=== PATIENT | female | born 1950 | race Caucasian/White ===

== ENCOUNTER → 2016-08-20 | Outpatient (CLI) | payer MEDICARE, BC ==
--- NOTE | 2016-08-20 08:23 | PCM.PRNOTE ---
- Free Text/Narrative Note: Lexiscan Indication cardiomyopathy Patient was supervised today during infusion portion of the stress test. The patient received Regadenoson 0.4 mg IV and nuclear agent using standard protocol. Sestamibi Tm99 25 Mci was gievn afterwards Baseline blood pressure is140/73 with a heart rate 66 EKG atrial fibrillation without ST abnormalities Vital signs at injection: Peak blood pressure 137/61 with a heart rate of 100 Vital signs at 4 minutes post injection: Peak blood pressure 139/62with a heart rate of99 EKG SR CLBBB, widening QRS complex during stress phase Patient complains of SOB spontaneously resolved Adverse effects from Yee scan none Test done due to end of protocol Impression 1. electrocardiographically nondiagnostic for ischemia due to chemical protocol 2. nuclear imaging pending 3. will contact EPS for the ECG change while on flecanide
--- NOTE | 2016-08-20 14:49 | NM ---
EXAMINATION: Nuclear medicine myocardial perfusion study HISTORY: Atrial fibrillation. PROCEDURE: Following intravenous administration of 0.4 mg of Lexiscan and 25.6 mCi of technetium 99m sestamib i, stress SPECT images including gating imaging was performed. FINDINGS: Stress myocardial SPECT images demonstrates mildly decreased perfusion at the apex involving a small area. There is also a moderate area of mildly decreased perfusion along the anteroseptal wall. Review of gated images demonstrates normal wall motion, contractility and wall thickening. The left ventricular ejection fraction is 49 %. The left ventricular chamber size is normal. IMPRESSION: 1. Mildly decreased perfusion at the apex and along the anteroseptal wall. Correlate with rest imag ing. 2. Normal ventricular chamber size and function with borderline ejection fraction of 49 %.
--- NOTE | 2016-08-30 11:48 | NM ---
EXAM DATE: 08/20/16 PATIENT'S AGE: 66 ADDENDUM: Additional images were obtained at rest following the administration of 25.7 mCi of technetium 99M labeled sestamibi. FINDINGS/IMPRESSION: Overall the perfusion pattern at rest appears heterogeneous and compared to the stress imaging. There is no definite evidence of reversible perfusion. The decreased uptake along the anteroseptal wall appears more prominent on the rest imaging. No evidence of myocardial ischemia. The ejection fraction at rest is 51 %. The TID is 1.1. EXAMINATION: Nuclear medicine myocardial perfusion study HISTORY: Atrial fibrillation. PROCEDURE: Following intravenous administration of 0.4 mg of Lexiscan and 25.6 mCi of technetium 99m sestamibi, stress SPECT images including gating imaging was performed. FINDINGS: Stress myocardial SPECT images demonstrates mildly decreased perfusion at the apex involving a small area. There is also a moderate area of mildly decreased perfusion along the anteroseptal wall. Review of gated images demonstrates normal wall motion, contractility and wall thickening. The left ventricular ejection fraction is 49 %. The left ventricular chamber size is normal. IMPRESSION: 1. Mildly decreased perfusion at the apex and along the anteroseptal wall. Correlate with rest imaging. 2. Normal ventricular chamber size and function with borderline ejection fraction of 49 %. MTDD
== END ==
LOC: MW.NM 07:28
PROVIDERS: ATTEND Nurse Practitioner Family
DX: I48.0 Paroxysmal atrial fibrillation (principal); I42.9 Cardiomyopathy, unspecified
CPT/HCPCS: 78452; 93017; A9500; J2785; 78451; 78451-26

== ENCOUNTER → 2016-08-22 | Outpatient (CLI) | payer MEDICARE, BC ==
--- NOTE | 2016-08-27 15:15 | NM ---
EXAM DATE: 08/22/16 PATIENT'S AGE: 66 ADDENDUM: Additional images were obtained at rest following the administration of 25.7 mCi of technetium 99M labeled sestamibi. FINDINGS/IMPRESSION: Overall the perfusion pattern at rest appears heterogeneous and compared to the stress imaging. There is no definite evidence of reversible perfusion. The decreased uptake along the anteroseptal wall appears more prominent on the rest imaging. No evidence of myocardial ischemia. The ejection fraction at rest is 51 %. The TID is 1.1. EXAMINATION: Nuclear medicine myocardial perfusion study HISTORY: Atrial fibrillation. PROCEDURE: Following intravenous administration of 0.4 mg of Lexiscan and 25.6 mCi of technetium 99m sestamibi, stress SPECT images including gating imaging was performed. FINDINGS: Stress myocardial SPECT images demonstrates mildly decreased perfusion at the apex involving a small area. There is also a moderate area of mildly decreased perfusion along the anteroseptal wall. Review of gated images demonstrates normal wall motion, contractility and wall thickening. The left ventricular ejection fraction is 49 %. The left ventricular chamber size is normal. IMPRESSION: 1. Mildly decreased perfusion at the apex and along the anteroseptal wall. Correlate with rest imaging. 2. Normal ventricular chamber size and function with borderline ejection fraction of 49 %. MTDD
== END ==
LOC: MW.NM 08:52
PROVIDERS: ATTEND Nurse Practitioner Family
DX: I48.0 Paroxysmal atrial fibrillation (principal)
CPT/HCPCS: 78451; A9500

== ENCOUNTER 2016-11-09 12:44 | Emergency (ER) | payer MEDICARE, BC ==
[2016-11-09] MEDS ORDERED: Sodium Chloride 0.9% 10 ML Syringe FLUSH PRN (12:49)
[2016-11-09] MEDS ORDERED: Sodium Chloride 0.9% 2.5 ML Syringe FLUSH PRN (12:49)
[2016-11-09] MEDS ORDERED: Sodium Chloride 0.9% 1,000 ML IV ONE (12:49)
--- NOTE | 2016-11-09 12:52 | EDM.PDOC ---
ED HPI GENERAL MEDICAL PROBLEM - General Chief Complaint: Abdominal Pain Stated Complaint: STOMACH PAIN Time Seen by Provider: 11/09/16 12:48 - History of Present Illness INITIAL COMMENTS - FREE TEXT/NARRATIVE: HISTORY AND PHYSICAL: History of present illness: Patient 66-year-old white female history of atrial fibrillation and presents with concern of abdominal pain 1 day who noted blood in her stool this a.m. she denies fever chills nausea vomiting or other complaints no chest pain no shortness of breath Review of systems: As per history of present illness and below otherwise all systems reviewed and negative. Past medical history: As per history of present illness and as reviewed below otherwise noncontributory. Surgical history: As per history of present illness and as reviewed below otherwise noncontributory. Social history: No reported history of drug or alcohol abuse. Family history: As per history of present illness and as reviewed below otherwise noncontributory. Physical exam: HEENT: Atraumatic, normocephalic, pupils reactive, negative for conjunctival pallor or scleral icterus, mucous membranes moist, throat clear, neck supple, nontender, trachea midline. Lungs: Clear to auscultation, breath sounds equal bilaterally, chest nontender. Heart: S1S2, irregular, negative for clicks, rubs, or JVD. Abdomen: Soft, nondistended, mild tenderness across her lower abdomen greatest in the left lower quadrant no rebound no guarding. Negative for masses or hepatosplenomegaly. Negative for costovertebral tenderness. Pelvis: Stable nontender. Genitourinary: Deferred. Rectal: Deferred. Extremities: Atraumatic, negative for cords or calf pain. Neurovascular unremarkable. Neuro: Awake, alert, oriented. Cranial nerves II through XII unremarkable. Cerebellum unremarkable. Motor and sensory unremarkable throughout. Exam nonfocal. Diagnostics: CBC CMP PT/INR troponin chest x-ray EKG CT abdomen and pelvis with IV contrast Therapeutics: Normal saline 1 L bolus Impression: #1 abdominal pain #2 history of atrial fibrillation #3 UTI Definitive disposition and diagnosis as appropriate pending reevaluation and review of above. - Related Data Allergies Allergy/AdvReac Type Severity Reaction Status Date / Time nitrofurantoin Allergy Hives Verified 11/09/16 12:57 Home Meds: Home Meds Bifidobacterium Infantis [Align] 10.5 mg PO DAILY 11/09/16 [History] Flecainide Acetate 100 mg PO DAILY 11/09/16 [History] Verapamil [Calan SR] 120 mg PO DAILY 11/09/16 [History] Warfarin [Coumadin] 2.5 mg PO ASDIRECTED 11/09/16 [History] Past Medical History HEENT History: Reports: None Cardiovascular History: Reports: Afib Respiratory History: Reports: None Gastrointestinal History: Reports: None Genitourinary History: Reports: UTI, Recurrent CONSULTING PROJECT DIRECTOR History: Reports: 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 History: Reports: None Neurological History: Reports: None Psychiatric History: Reports: None Hematologic History: Reports: None Oncologic (Cancer) History: Reports: Thyroid Dermatologic History: Reports: None - Infectious Disease History Infectious Disease History: Reports: Chicken Pox, Measles, Mumps - Past Surgical History Female Surgical History: Reports: Hysterectomy, Other (See Below) Social & Family History - Family History Family Medical History: Noncontributory - Tobacco Use Smoking Status *Q: Never Smoker Second Hand Smoke Exposure: No - Alcohol Use Days Per Week of Alcohol Use: 0 - Recreational Drug Use Recreational Drug Use: No ED ROS GENERAL - Review of Systems Review Of Systems: ROS reveals no pertinent complaints other than HPI. ED EXAM, GENERAL - Physical Exam Exam: See Below (See dictation) Course - Vital Signs Last Recorded V/S: Last Vital Signs Temp 36.1 C 11/09/16 14:24 Pulse 61 11/09/16 14:24 Resp 18 11/09/16 14:24 BP 146/57 H 11/09/16 14:24 Pulse Ox 99 11/09/16 14:24 - Orders/Labs/Meds Orders: Active Orders 24 hr Category Date Time Status EKG Documentation Completion [RC] STAT Care 11/09/16 12:49 Active Pulse Oximetry [RC] ASDIRECTED Care 11/09/16 12:49 Active Abdomen Pelvis w Cont [CT] Stat Exams 11/09/16 12:49 Taken Sodium Chloride 0.9% [Saline Flush] Med 11/09/16 12:49 Active 10 ml FLUSH ASDIRECTED PRN Sodium Chloride 0.9% [Saline Flush] Med 11/09/16 12:49 Active 2.5 ml FLUSH ASDIRECTED PRN Saline Lock Insert [OM.PC] Stat Oth 11/09/16 12:49 Ordered Medication Orders Sodium Chloride (Saline Flush) 10 ml FLUSH ASDIRECTED PRN PRN Reason: Keep Vein Open Sodium Chloride (Saline Flush) 2.5 ml FLUSH ASDIRECTED PRN PRN Reason: Keep Vein Open Labs: Laboratory Tests 11/09/16 11/09/16 11/09/16 Range/Units 13:00 13:00 13:00 WBC 6.51 (4.0-11.0) K/uL RBC 4.36 (4.30-5.90) M/uL Hgb 13.4 (12.0-16.0) g/dL Hct 38.8 (36.0-46.0) % MCV 89.0 (80.0-98.0) fL MCH 30.7 (27.0-32.0) pg MCHC 34.5 (31.0-37.0) g/dL RDW Std Deviation 40.2 (28.0-62.0) fl RDW Coeff of Caroline 13 (11.0-15.0) % Plt Count 225 (150-400) K/uL MPV 9.30 (7.40-12.00) fL Neut % (Auto) 75.8 (48.0-80.0) % Lymph % (Auto) 17.1 (16.0-40.0) % [place] % (Auto) 6.6 (0.0-15.0) % Eos % (Auto) 0.2 (0.0-7.0) % Baso % (Auto) 0.3 (0.0-1.5) % Neut # (Auto) 4.9 (1.4-5.7) K/uL Lymph # (Auto) 1.1 (0.6-2.4) K/uL [place] # (Auto) 0.4 (0.0-0.8) K/uL Eos # (Auto) 0.0 (0.0-0.7) K/uL Baso # (Auto) 0.0 (0.0-0.1) K/uL Nucleated RBC % 0.0 /100WBC Nucleated RBCs # 0 K/uL INR 1.99 H (0.86-1.11) Sodium 141 (136-146) mmol/L Potassium 3.4 L (3.5-5.1) mmol/L Chloride 109 (98-110) mmol/L Carbon Dioxide 26 (21-31) mmol/L BUN 19 (6.0-23.0) mg/dL Creatinine 0.8 (0.6-1.5) mg/dL Est Cr Clr Drug Dosing 65.28 mL/min Estimated GFR (MDRD) > 60.0 ml/min Glucose 99 (60-110) mg/dL Calcium 9.3 (8.8-10.8) mg/dL Total Bilirubin 1.4 (0.1-1.5) mg/dL AST 26 (5-40) IU/L ALT 22 (8-54) IU/L Alkaline Phosphatase 89 (40-150) Troponin I (0.0-0.29) NG/ML Total Protein 7.2 (6.0-8.0) g/dL Albumin 4.2 (3.4-4.8) g/dL Globulin 3.0 (2.0-3.5) g/dL Albumin/Globulin Ratio 1.4 (1.3-2.8) Amylase 53 (10-90) U/L Lipase 12 (7-80) U/L Urine Color Urine Appearance Urine pH (5.0-8.0) Ur Specific [place] (1.001-1.035) Urine Protein (NEGATIVE) mg/dL Urine Glucose (UA) (NEGATIVE) mg/dL Urine Ketones (NEGATIVE) mg/dL Urine Occult Blood (NEGATIVE) Urine Nitrite (NEGATIVE) Urine Bilirubin (NEGATIVE) Urine Urobilinogen (<2.0) EU/dL Ur Leukocyte Esterase (NEGATIVE) Urine RBC (0-2/HPF) Urine WBC (0-5/HPF) Ur Epithelial Cells (NONE-FEW) Urine Bacteria (NEGATIVE) 11/09/16 11/09/16 Range/Units 13:00 13:15 WBC (4.0-11.0) K/uL RBC (4.30-5.90) M/uL Hgb (12.0-16.0) g/dL Hct (36.0-46.0) % MCV (80.0-98.0) fL MCH (27.0-32.0) pg MCHC (31.0-37.0) g/dL RDW Std Deviation (28.0-62.0) fl RDW Coeff of Caroline (11.0-15.0) % Plt Count (150-400) K/uL MPV (7.40-12.00) fL Neut % (Auto) (48.0-80.0) % Lymph % (Auto) (16.0-40.0) % [place] % (Auto) (0.0-15.0) % Eos % (Auto) (0.0-7.0) % Baso % (Auto) (0.0-1.5) % Neut # (Auto) (1.4-5.7) K/uL Lymph # (Auto) (0.6-2.4) K/uL [place] # (Auto) (0.0-0.8) K/uL Eos # (Auto) (0.0-0.7) K/uL Baso # (Auto) (0.0-0.1) K/uL Nucleated RBC % /100WBC Nucleated RBCs # K/uL INR (0.86-1.11) Sodium (136-146) mmol/L Potassium (3.5-5.1) mmol/L Chloride (98-110) mmol/L Carbon Dioxide (21-31) mmol/L BUN (6.0-23.0) mg/dL Creatinine (0.6-1.5) mg/dL Est Cr Clr Drug Dosing mL/min Estimated GFR (MDRD) ml/min Glucose (60-110) mg/dL Calcium (8.8-10.8) mg/dL Total Bilirubin (0.1-1.5) mg/dL AST (5-40) IU/L ALT (8-54) IU/L Alkaline Phosphatase (40-150) Troponin I < 0.10 (0.0-0.29) NG/ML Total Protein (6.0-8.0) g/dL Albumin (3.4-4.8) g/dL Globulin (2.0-3.5) g/dL Albumin/Globulin Ratio (1.3-2.8) Amylase (10-90) U/L Lipase (7-80) U/L Urine Color YELLOW Urine Appearance CLEAR Urine pH 6.5 (5.0-8.0) Ur Specific [place] <= 1.005 (1.001-1.035) Urine Protein NEGATIVE (NEGATIVE) mg/dL Urine Glucose (UA) NEGATIVE (NEGATIVE) mg/dL Urine Ketones NEGATIVE (NEGATIVE) mg/dL Urine Occult Blood MODERATE (NEGATIVE) Urine Nitrite POSITIVE H (NEGATIVE) Urine Bilirubin NEGATIVE (NEGATIVE) Urine Urobilinogen 0.2 (<2.0) EU/dL Ur Leukocyte Esterase NEGATIVE (NEGATIVE) Urine RBC 0-1 (0-2/HPF) Urine WBC 3-5 (0-5/HPF) Ur Epithelial Cells RARE (NONE-FEW) Urine Bacteria 1+ H (NEGATIVE) Meds: Medications Generic Name Dose Route Start Last Admin Trade Name Freq PRN Reason Stop Dose Admin Sodium Chloride 10 ml 11/09/16 12:49 Saline Flush FLUSH ASDIRECTED PRN Keep Vein Open Sodium Chloride 2.5 ml 11/09/16 12:49 Saline Flush FLUSH ASDIRECTED PRN Keep Vein Open Discontinued Medications Generic Name Dose Route Start Last Admin Trade Name Freq PRN Reason Stop Dose Admin Sodium Chloride 1,000 mls @ 999 mls/hr 11/09/16 12:49 11/09/16 13:18 Normal Saline IV 11/09/16 13:49 999 mls/hr STAT ONE Administration Iopamidol 100 ml 11/09/16 14:39 11/09/16 14:40 Isovue Multipack-370 (76%) IVPUSH 11/09/16 14:40 100 ml ONETIME STA Administration Departure - Departure Time of Disposition: 15:39 Disposition: Home, Self-Care 01 Condition: Good Clinical Impression: Abdominal pain, History of rectal bleeding, UTI (urinary tract infection) - Discharge Information Forms: ED Department Discharge Additional Instructions: The following information is given to patients seen in the emergency department who are being discharged to home. This information is to outline your options for follow-up care. We provide all patients seen in our emergency department with a follow-up referral. The need for follow-up, as well as the timing and circumstances, are variable depending upon the specifics of your emergency department visit. If you don't have a primary care physician on staff, we will provide you with a referral. We always advise you to contact your personal physician following an emergency department visit to inform them of the circumstance of the visit and for follow-up with them and/or the need for any referrals to a consulting specialist. The emergency department will also refer you to a specialist when appropriate. This referral assures that you have the opportunity for followup care with a specialist. All of these measure are taken in an effort to provide you with optimal care, which includes your followup. Under all circumstances we always encourage you to contact your private physician who remains a resource for coordinating your care. When calling for followup care, please make the office aware that this follow-up is from your recent emergency room visit. If for any reason you are refused follow-up, please contact the emergency department at and asked to speak to the emergency department charge nurse. Cipro as prescribed follow-up primary medical doctor 1-2 days return as needed as discussed - My Orders Last 24 Hours: My Active Orders 11/09/16 12:49 EKG Documentation Completion [RC] STAT Pulse Oximetry [RC] ASDIRECTED Abdomen Pelvis w Cont [CT] Stat Sodium Chloride 0.9% [Saline Flush] 10 ml FLUSH ASDIRECTED PRN Sodium Chloride 0.9% [Saline Flush] 2.5 ml FLUSH ASDIRECTED PRN Saline Lock Insert [OM.PC] Stat - Assessment/Plan Last 24 Hours: My Active Orders 11/09/16 12:49 EKG Documentation Completion [RC] STAT Pulse Oximetry [RC] ASDIRECTED Abdomen Pelvis w Cont [CT] Stat Sodium Chloride 0.9% [Saline Flush] 10 ml FLUSH ASDIRECTED PRN Sodium Chloride 0.9% [Saline Flush] 2.5 ml FLUSH ASDIRECTED PRN Saline Lock Insert [OM.PC] Stat
[2016-11-09 13:40] LABS: CHLORIDE,CL 109 mmol/L (98-110); SODIUM,NA 141 mmol/L (136-146)
[2016-11-09] MEDS ORDERED: Iopamidol 755 MG/ML 500 ML Multipack Bottle IVPUSH STA (14:39)
[2016-11-09 15:40] VITALS: BP 137/60
--- NOTE | 2016-11-11 13:00 | CT ---
EXAM DATE: 11/09/16 PATIENT'S AGE: 66 Patient: ERWIN GARCIA Facility: [place], [place] Site . Site : [id number] Study: CT Abdomen/Pelvis [id number]/[id number] 2:57:30 PM Ordering Physician: Linda Anna Final Report: INDICATION: Lower abdominal pain. Bright red stool. TECHNIQUE: Volumetric helical scanning of the abdomen and pelvis was performed with 100 cc of Isovue 370 contrast material IV. Coronal and sagittal reconstructions were obtained. COMPARISON: None. FINDINGS: There is no evidence of bowel obstruction or inflammation. No free fluid or free air is demonstrated. The liver is normal in size, shape and attenuation. No bile duct dilation is evident. The spleen, adrenal glands and pancreas are within normal limits. The kidneys are unremarkable except several tiny parenchymal cysts. No lymphadenopathy is evident. The uterus has been removed. A normal left ovary is noted. A right ovary is not visualized. An air bubble is present in the bladder , presumably due to instrumentation. The lung bases are clear. The heart is normal in size. IMPRESSION: 1. Etiology of lower abdominal pain and bloody stool not evident. 2. Post hysterectomy. 3. Tiny renal parenchymal cysts. 4. Air bubble in the bladder, presumably due to instrumentation. Please note that all CT scans at this facility use dose modulation, iterative reconstruction, and/or weight-based dosing when appropriate to reduce radiation dose to as low as reasonably achievable. Dictated by Ryan Chowdhury MD @ Nov 09 2016 3:24PM (Electronic Signature) Report Signed by Proxy. COREY
== END 2016-11-09 15:52 | disposition home or self-care (01) ==
LOC: MW.ED 12:44
DX: N39.0 Urinary tract infection, site not specified (principal); I48.91 Unspecified atrial fibrillation; Z88.8 Allergy status to other drugs, medicaments and biological substances; Z79.01 Long term (current) use of anticoagulants; Z79.899 Other long term (current) drug therapy; Z90.710 Acquired absence of both cervix and uterus
CPT/HCPCS: 36415; 74177; 80053; 81001; 82150; 83690; 84484; 85025; 85610; 96360; 99284; J7040; Q9967; 93005; 99282

== ENCOUNTER 2017-03-30 18:21 | Emergency (ER) | payer MEDICARE, BC ==
--- NOTE | 2017-03-30 18:47 | EDM.PDOC ---
ED HPI GENERAL MEDICAL PROBLEM - General Chief Complaint: Cardiovascular Problem Stated Complaint: NOT FEELING WELL Time Seen by Provider: 03/30/17 18:42 - History of Present Illness INITIAL COMMENTS - FREE TEXT/NARRATIVE: HISTORY AND PHYSICAL: History of present illness: Patient 66-year-old female history of intermittent atrial fibrillation presents a concern of palpitations and irregular heartbeat that is resolved upon arrival she states she's had similar episodes in the past with the same feeling related to intermittent atrial fibrillation. She denies chest pain nausea vomiting or other concerns at this point Review of systems: As per history of present illness and below otherwise all systems reviewed and negative. Past medical history: As per history of present illness and as reviewed below otherwise noncontributory. Surgical history: As per history of present illness and as reviewed below otherwise noncontributory. Social history: No reported history of drug or alcohol abuse. Family history: As per history of present illness and as reviewed below otherwise noncontributory. Physical exam: HEENT: Atraumatic, normocephalic, pupils reactive, negative for conjunctival pallor or scleral icterus, mucous membranes moist, throat clear, neck supple, nontender, trachea midline. Lungs: Clear to auscultation, breath sounds equal bilaterally, chest nontender. Heart: S1S2, regular, negative for clicks, rubs, or JVD. Abdomen: Soft, nondistended, nontender. Negative for masses or hepatosplenomegaly. Negative for costovertebral tenderness. Pelvis: Stable nontender. Genitourinary: Deferred. Rectal: Deferred. Extremities: Atraumatic, negative for cords or calf pain. Neurovascular unremarkable. Neuro: Awake, alert, oriented. Cranial nerves II through XII unremarkable. Cerebellum unremarkable. Motor and sensory unremarkable throughout. Exam nonfocal. Diagnostics: BC CMP PT/INR troponin chest x-ray EKG Therapeutics: IV O2 monitor Impression: #1 palpitations #2 history of intermittent atrial fibrillation Definitive disposition and diagnosis as appropriate pending reevaluation and review of above. - Related Data Allergies Allergy/AdvReac Type Severity Reaction Status Date / Time nitrofurantoin Allergy Hives Verified 03/30/17 18:39 Home Meds: Home Meds Bifidobacterium Infantis [Align] 10.5 mg PO DAILY 11/09/16 [History] Flecainide Acetate 100 mg PO BID 11/09/16 [History] Verapamil [Calan SR] 120 mg PO DAILY 11/09/16 [History] Warfarin [Coumadin] 7 mg PO ASDIRECTED 11/09/16 [History] Cephalexin [Keflex] 250 mg PO DAILY 03/30/17 [History] Past Medical History HEENT History: Reports: None Cardiovascular History: Reports: Afib Respiratory History: Reports: None Gastrointestinal History: Reports: None Genitourinary History: Reports: UTI, Recurrent 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: 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 History: Reports: None Neurological History: Reports: None Psychiatric History: Reports: None Hematologic History: Reports: None Oncologic (Cancer) History: Reports: Thyroid Dermatologic History: Reports: None - Infectious Disease History Infectious Disease History: Reports: Chicken Pox, Measles, Mumps - Past Surgical History Female Surgical History: Reports: Hysterectomy, Other (See Below) Social & Family History - Family History Family Medical History: Noncontributory - Tobacco Use Smoking Status *Q: Never Smoker Second Hand Smoke Exposure: No - Alcohol Use Days Per Week of Alcohol Use: 0 - Recreational Drug Use Recreational Drug Use: No ED ROS GENERAL - Review of Systems Review Of Systems: ROS reveals no pertinent complaints other than HPI. ED EXAM, GENERAL - Physical Exam Exam: See Below (See dictation) Course - Vital Signs Text/Narrative:: I discussed with patient all results as well as with patient was offered admission for observation I discussed subtle EKG changes with patient patient remains asymptomatic is eager for discharge and agrees to follow-up with private medical doctor and cardiology Last Recorded V/S: Last Vital Signs Temp 36.9 C 03/30/17 18:21 Pulse 75 03/30/17 19:38 Resp 14 03/30/17 19:38 BP 144/70 H 03/30/17 19:38 Pulse Ox 97 03/30/17 19:38 - Orders/Labs/Meds Orders: Active Orders 24 hr Category Date Time Status Chest 1V Frontal [CR] Stat Exams 03/30/17 18:45 Taken Labs: Laboratory Tests 03/30/17 03/30/17 03/30/17 Range/Units 19:02 19:02 19:02 WBC 6.49 (4.0-11.0) K/uL RBC 4.17 L (4.30-5.90) M/uL Hgb 13.1 (12.0-16.0) g/dL Hct 38.0 (36.0-46.0) % MCV 91.1 (80.0-98.0) fL MCH 31.4 (27.0-32.0) pg MCHC 34.5 (31.0-37.0) g/dL RDW Std Deviation 42.5 (28.0-62.0) fl RDW Coeff of Caroline 13 (11.0-15.0) % Plt Count 253 (150-400) K/uL MPV 9.20 (7.40-12.00) fL Neut % (Auto) 70.2 (48.0-80.0) % Lymph % (Auto) 21.9 (16.0-40.0) % [place] % (Auto) 7.1 (0.0-15.0) % Eos % (Auto) 0.5 (0.0-7.0) % Baso % (Auto) 0.3 (0.0-1.5) % Neut # (Auto) 4.6 (1.4-5.7) K/uL Lymph # (Auto) 1.4 (0.6-2.4) K/uL [place] # (Auto) 0.5 (0.0-0.8) K/uL Eos # (Auto) 0.0 (0.0-0.7) K/uL Baso # (Auto) 0.0 (0.0-0.1) K/uL Nucleated RBC % 0.0 /100WBC Nucleated RBCs # 0 K/uL INR 2.79 H (0.86-1.11) D-Dimer, Quantitative (0.0-0.52) mg/LFEU Sodium 140 (136-146) mmol/L Potassium 3.8 (3.5-5.1) mmol/L Chloride 108 (98-110) mmol/L Carbon Dioxide 23 (21-31) mmol/L BUN 20 (6.0-23.0) mg/dL Creatinine 0.8 (0.6-1.5) mg/dL Est Cr Clr Drug Dosing 65.45 mL/min Estimated GFR (MDRD) > 60.0 ml/min Glucose 97 (60-110) mg/dL Calcium 9.1 (8.8-10.8) mg/dL Total Bilirubin 0.9 (0.1-1.5) mg/dL AST 24 (5-40) IU/L ALT 23 (8-54) IU/L Alkaline Phosphatase 80 (40-150) Creatine Kinase 172 (9-236) IU/L Troponin I 0.16 (0.0-0.29) NG/ML Total Protein 7.0 (6.0-8.0) g/dL Albumin 4.1 (3.4-4.8) g/dL Globulin 2.9 (2.0-3.5) g/dL Albumin/Globulin Ratio 1.4 (1.3-2.8) 03/30/17 Range/Units 19:02 WBC (4.0-11.0) K/uL RBC (4.30-5.90) M/uL Hgb (12.0-16.0) g/dL Hct (36.0-46.0) % MCV (80.0-98.0) fL MCH (27.0-32.0) pg MCHC (31.0-37.0) g/dL RDW Std Deviation (28.0-62.0) fl RDW Coeff of Caroline (11.0-15.0) % Plt Count (150-400) K/uL MPV (7.40-12.00) fL Neut % (Auto) (48.0-80.0) % Lymph % (Auto) (16.0-40.0) % [place] % (Auto) (0.0-15.0) % Eos % (Auto) (0.0-7.0) % Baso % (Auto) (0.0-1.5) % Neut # (Auto) (1.4-5.7) K/uL Lymph # (Auto) (0.6-2.4) K/uL [place] # (Auto) (0.0-0.8) K/uL Eos # (Auto) (0.0-0.7) K/uL Baso # (Auto) (0.0-0.1) K/uL Nucleated RBC % /100WBC Nucleated RBCs # K/uL INR (0.86-1.11) D-Dimer, Quantitative < 0.19 (0.0-0.52) mg/LFEU Sodium (136-146) mmol/L Potassium (3.5-5.1) mmol/L Chloride (98-110) mmol/L Carbon Dioxide (21-31) mmol/L BUN (6.0-23.0) mg/dL Creatinine (0.6-1.5) mg/dL Est Cr Clr Drug Dosing mL/min Estimated GFR (MDRD) ml/min Glucose (60-110) mg/dL Calcium (8.8-10.8) mg/dL Total Bilirubin (0.1-1.5) mg/dL AST (5-40) IU/L ALT (8-54) IU/L Alkaline Phosphatase (40-150) Creatine Kinase (9-236) IU/L Troponin I (0.0-0.29) NG/ML Total Protein (6.0-8.0) g/dL Albumin (3.4-4.8) g/dL Globulin (2.0-3.5) g/dL Albumin/Globulin Ratio (1.3-2.8) Departure - Departure Time of Disposition: 20:11 Disposition: Home, Self-Care 01 Condition: Good Clinical Impression: Palpitations, History of atrial fibrillation Referrals: Eva Leal MD [Primary Care Provider] - Forms: ED Department Discharge Additional Instructions: The following information is given to patients seen in the emergency department who are being discharged to home. This information is to outline your options for follow-up care. We provide all patients seen in our emergency department with a follow-up referral. The need for follow-up, as well as the timing and circumstances, are variable depending upon the specifics of your emergency department visit. If you don't have a primary care physician on staff, we will provide you with a referral. We always advise you to contact your personal physician following an emergency department visit to inform them of the circumstance of the visit and for follow-up with them and/or the need for any referrals to a consulting specialist. The emergency department will also refer you to a specialist when appropriate. This referral assures that you have the opportunity for followup care with a specialist. All of these measure are taken in an effort to provide you with optimal care, which includes your followup. Under all circumstances we always encourage you to contact your private physician who remains a resource for coordinating your care. When calling for followup care, please make the office aware that this follow-up is from your recent emergency room visit. If for any reason you are refused follow-up, please contact the [facility] emergency department at and asked to speak to the emergency department charge nurse. Continue current medications follow-up cardiology and private medical doctor 1- 2 days return as needed as discussed - My Orders Last 24 Hours: My Active Orders 03/30/17 18:45 Chest 1V Frontal [CR] Stat - Assessment/Plan Last 24 Hours: My Active Orders 03/30/17 18:45 Chest 1V Frontal [CR] Stat
[2017-03-30 19:30] LABS: CHLORIDE,CL 108 mmol/L (98-110); SODIUM,NA 140 mmol/L (136-146)
[2017-03-30 20:21] VITALS: BP 148/69
--- NOTE | 2017-03-31 17:14 | CR ---
EXAM DATE: 03/30/17 PATIENT'S AGE: 66 Patient: ERWIN GARCIA Facility: [place], [place] Site . Site : 1950 Study: XRay Chest [id number]/26/2017 7:29:32 PM Ordering Physician: Linda Anna Final Report: HISTORY: Palpitations. TECHNIQUE: One view of the chest. COMPARISON: 04/02/2016. FINDINGS: Cardiomegaly. No pulmonary vascular redistribution. There is no acute lung infiltrate or pulmonary edema. No pneumothorax. No significant effusion. IMPRESSION: 1. Cardiomegaly. 2. No acute lung infiltrate or pulmonary edema. Dictated by Tera Davis MD @ 03/30/2017 7:57:32 PM Dictated by: Tera Davis MD @ 03/30/2017 19:57:40 (Electronic Signature) Report Signed by Proxy. [facility]ITAL[facility]
== END 2017-03-30 20:19 | disposition home or self-care (01) ==
LOC: MW.ED 18:21
DX: R00.2 Palpitations (principal); I48.91 Unspecified atrial fibrillation; Z79.01 Long term (current) use of anticoagulants; Z79.899 Other long term (current) drug therapy; Z88.8 Allergy status to other drugs, medicaments and biological substances
CPT/HCPCS: 36415; 71010; 71010-26; 80053; 82550; 84484; 85025; 85379; 85610; 93005; 99285; 99285-25

== ENCOUNTER 2017-05-29 17:29 | Emergency (ER) | payer MEDICARE, BC ==
[2017-05-29] MEDS ORDERED: Morphine 4 MG/ML Syringe IM ONE (17:42)
[2017-05-29] MEDS ORDERED: Ondansetron 4 MG Tab.DIS PO ONE (17:42)
--- NOTE | 2017-05-29 17:46 | EDM.PDOC ---
ED HPI GENERAL MEDICAL PROBLEM - General Chief Complaint: Lower Extremity Injury/Pain Stated Complaint: PT FELL AND HURT LT KNEE Time Seen by Provider: 05/29/17 17:37 Source of Information: Reports: Patient History Limitations: Reports: No Limitations - History of Present Illness INITIAL COMMENTS - FREE TEXT/NARRATIVE: HISTORY AND PHYSICAL: History of present illness: Patient is a 66-year-old female who presents to the emergency room with complaints of left knee pain. Prior to arrival she had fallen and slipped on the knee while walking on ice. She states she was unable to walk to the vehicle and did have to have her helped carry her. Denies any hip, thigh, hip fib, ankle or foot involvement. She did not hit her head and denies any loss of consciousness. History of atrial fibrillation on coumadin. Review of systems: As per history of present illness and below otherwise all systems reviewed and negative. Past medical history: As per history of present illness and as reviewed below otherwise noncontributory. Surgical history: As per history of present illness and as reviewed below otherwise noncontributory. Social history: No reported history of drug or alcohol abuse. Family history: As per history of present illness and as reviewed below otherwise noncontributory. Physical exam: Gen.: Well-developed and well-nourished 66-year-old female. Alert and oriented. Appears nontoxic. Mildly uncomfortable related to pain. HEENT: Atraumatic, normocephalic, pupils reactive, negative for conjunctival pallor or scleral icterus, mucous membranes moist, throat clear, neck supple, nontender, trachea midline. Lungs: Clear to auscultation, breath sounds equal bilaterally, chest nontender. Heart: S1S2, regular, negative for clicks, rubs, or JVD. Abdomen: Soft, nondistended, nontender. Negative for masses or hepatosplenomegaly. Negative for costovertebral tenderness. Pelvis: Stable nontender. Genitourinary: Deferred. Rectal: Deferred. Extremities: Patient does have pain to the left knee, soft tissue swelling and bruising noted. Patient reports she is unable to fully extend the left leg. Strong pedal pulse. Capillary refill less than 3 seconds. She is negative for cords or calf pain. Neurovascular unremarkable. Neuro: Awake, alert, oriented. Cranial nerves II through XII unremarkable. Cerebellum unremarkable. Motor and sensory unremarkable throughout. Exam nonfocal. Patient does have a patellar fracture of the left knee. Currently do not have orthopedics on-call. Pete Holman, Orthopedic provider at [facility] in [place] was consulted on this case. Due to the patient being on Coumadin with atrial fibrillation, he states he would like the patient to see her primary care provider to have a history and physical done and off of her Coumadin prior to surgical intervention. He has agreed to see the patient on Friday at his clinic. This information was explained to the patient. They state they would like to follow-up in [place].Regardless of where they do choose to receive further orthopedic care the patient is aware that she needs to see her primary care provider tomorrow for further preoperative assessment. Velcro splint applied above the knee with crutches. Strong pedal pulses post- application. Discussed signs and symptoms to monitor for well at home. Prescription for [place] 5/325, 1 -2 tab every 4-6 hours as needed for pain, dispense #30, no refill. Zofran 4 mg ODT, 1 tab every 6 hours as needed, dispense #10, no refill. Discussed the importance of adequate follow-up with orthopedic provider in the next couple days. If she has any new symptoms or worsening pain she needs to return to the emergency room. Patient voices understanding and is agreeable to plan of care. She denies any further questions at this time. Diagnostics: X-ray Therapeutics: Morphine, Zofran Impression: Patellar Fracture, Left Plan: 1. Please keep the immobilizer on and intact. Use the crutches to be non- weightbearing. Rest, ice, elevate the affected extremity when able. Washington 5/325 , one tab every 4-6 hours as needed for pain. You may use ibuprofen or Aleve if needed for breakthrough pain. 2. as we discussed you need to follow up with her primary care provider tomorrow for medical clearance (History and Physical) to did discuss your Coumadin use. we did talk to Dr. [facility] Starr in [place] (the closest facility with orthopedic availability). He has agreed to see you Friday if you are cleared by your primary care provider. You may follow up with [facility], our local orthopedic physicians here, or [place]. Whomever you choose to follow up with, you should arrange this with your primary care provider to ensure everything is completed prior to arrival for pending surgery. 3. See your Primary care doctor tomorrow. Please follow-up for management orthopedic provider next week. Return to the emergency room as needed and as we discussed. Definitive disposition and diagnosis as appropriate pending reevaluation and review of above. Onset: Today Duration: Minutes: Location: Reports: Lower Extremity, Left Knee Pain Score (Numeric/FACES): 10 - Related Data Allergies Allergy/AdvReac Type Severity Reaction Status Date / Time nitrofurantoin Allergy Hives Verified 05/29/17 17:48 Home Meds: Home Meds Flecainide Acetate 100 mg PO BID 11/09/16 [History] Verapamil [Calan SR] 120 mg PO DAILY 11/09/16 [History] Warfarin [Coumadin] 4 mg PO ASDIRECTED 11/09/16 [History] Cephalexin [Keflex] 250 mg PO DAILY 03/30/17 [History] Past Medical History - Past Health History Medical/Surgical History: Denies Medical/Surgical History HEENT History: Reports: None Other HEENT History: wears glasses Cardiovascular History: Reports: Afib Respiratory History: Reports: None Gastrointestinal History: Reports: None Other Gastrointestinal History: bladder infection Genitourinary History: Reports: UTI, Recurrent 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: 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 History: Reports: None Neurological History: Reports: None Psychiatric History: Reports: None Hematologic History: Reports: None Oncologic (Cancer) History: Reports: Thyroid Dermatologic History: Reports: None - Infectious Disease History Infectious Disease History: Reports: Chicken Pox, Measles, Mumps - Past Surgical History Female Surgical History: Reports: Hysterectomy, Other (See Below) Social & Family History - Family History Family Medical History: Noncontributory - Tobacco Use Smoking Status *Q: Never Smoker Second Hand Smoke Exposure: No - Caffeine Use Caffeine Use: Reports: Coffee - Alcohol Use Days Per Week of Alcohol Use: 0 - Recreational Drug Use Recreational Drug Use: No Review of Systems - Review of Systems Review Of Systems: ROS reveals no pertinent complaints other than HPI. ED EXAM, GENERAL - Physical Exam Exam: See Below (See dictation) Course - Vital Signs Last Recorded V/S: Last Vital Signs Temp 97.2 F 05/29/17 17:42 Pulse 69 05/29/17 17:42 Resp 18 05/29/17 17:42 BP 167/79 H 05/29/17 17:42 Pulse Ox 100 05/29/17 17:42 - Orders/Labs/Meds Orders: Active Orders 24 hr Category Date Time Status Knee 3V Lt [CR] Stat Exams 05/29/17 17:38 Taken Meds: Medications Discontinued Medications Generic Name Dose Route Start Last Admin Trade Name Juju PRN Reason Stop Dose Admin Morphine Sulfate 4 mg 05/29/17 17:42 05/29/17 17:49 Morphine IM 05/29/17 17:43 4 mg ONETIME ONE Administration Ondansetron HCl 4 mg 05/29/17 17:42 05/29/17 17:49 Zofran Odt PO 05/29/17 17:43 4 mg ONETIME ONE Administration Departure - Departure Time of Disposition: 18:21 Disposition: Home, Self-Care 01 Clinical Impression: Patella fracture Qualifiers: Encounter type: initial encounter Fracture type: closed Fracture morphology: transverse Fracture alignment: nondisplaced Laterality: left Qualified Code(s): S82.035A - Nondisplaced transverse fracture of left patella, initial encounter for closed fracture - Discharge Information Referrals: PCP,None [Primary Care Provider] - Forms: ED Department Discharge Additional Instructions: My general discharge The following information is given to patients seen in the emergency department who are being discharged to home. This information is to outline your options for follow-up care. We provide all patients seen in our emergency department with a follow-up referral. The need for follow-up, as well as the timing and circumstances, are variable depending upon the specifics of your emergency department visit. If you don't have a primary care physician on staff, we will provide you with a referral. We always advise you to contact your personal physician following an emergency department visit to inform them of the circumstance of the visit and for follow-up with them and/or the need for any referrals to a consulting specialist. The emergency department will also refer you to a specialist when appropriate. This referral assures that you have the opportunity for follow-up care with a specialist. All of these measure are taken in an effort to provide you with optimal care, which includes your follow-up. Under all circumstances we always encourage you to contact your private physician who remains a resource for coordinating your care. When calling for follow-up care, please make the office aware that this follow-up is from your recent emergency room visit. If for any reason you are refused follow-up, please contact the [facility] Emergency Department at and asked to speak to the emergency department charge nurse. [facility] Specialty Care - Orthopedic Clinic Professional [address], [address] [place] [address] Dr Bhatti (Orthopedic Physician) [facility] [phone] 1. Please keep the immobilizer on and intact. Use the crutches to be non- weightbearing. Rest, ice, elevate the affected extremity when able. Washington 5/325 , one tab every 4-6 hours as needed for pain. You may use ibuprofen or Aleve if needed for breakthrough pain. 2. as we discussed you need to follow up with her primary care provider tomorrow for medical clearance (History and Physical) to did discuss your Coumadin use. we did talk to Dr. Davy Starr in [place] (the closest facility with orthopedic availability). He has agreed to see you Friday if you are cleared by your primary care provider. You may follow up with [facility], our local orthopedic physicians here, or [place]. Whomever you choose to follow up with, you should arrange this with your primary care provider to ensure everything is completed prior to arrival for pending surgery. 3. See your Primary care doctor tomorrow. Please follow-up for management orthopedic provider next week. Return to the emergency room as needed and as we discussed. - My Orders Last 24 Hours: My Active Orders 05/29/17 17:38 Knee 3V Lt [CR] Stat - Assessment/Plan Last 24 Hours: My Active Orders 05/29/17 17:38 Knee 3V Lt [CR] Stat
[2017-05-29 20:13] VITALS: BP 160/74
--- NOTE | 2017-05-30 09:42 | CR ---
EXAM DATE: 05/29/17 PATIENT'S AGE: 66 Patient: ERWIN GARCIA Facility: [place], [place] Site Site : 1950 Study: XRay Knee Left [id number]/25/2018 6:17:36 PM Ordering Physician: FRANCESCA Final Report: INDICATION: Status post fall. TECHNIQUE: Knee radiographs 3 views COMPARISON: None FINDINGS: Acute, displaced fracture involving the patella with vertical and transverse components. Small joint effusion in the suprapatellar recess. No additional fracture. Tibial plateau intact. IMPRESSION: 1. Acute displaced patellar fracture with small left knee joint effusion. Dictated by Roderick Pastor MD @ 05/29/2017 6:53:40 PM Dictated by: Roderick Pastor MD @ 05/29/2017 18:53:46 (Electronic Signature) Report Signed by Proxy. [facility]ITALRenetta
== END 2017-05-29 20:12 | disposition home or self-care (01) ==
LOC: MW.ED 17:29
DX: S82.035A Nondisplaced transverse fracture of left patella, initial encounter for closed fracture (principal); Z88.8 Allergy status to other drugs, medicaments and biological substances; Z79.01 Long term (current) use of anticoagulants; Z79.899 Other long term (current) drug therapy; W00.0XXA Fall on same level due to ice and snow, initial encounter
CPT/HCPCS: 73562; 96372; 99283; A9270; J2270

== ENCOUNTER 2018-05-20 19:34 | Observation (INO) | payer MEDICARE, BC ==
[2018-05-20] MEDS ORDERED: Sodium Chloride 0.9% 2.5 ML Syringe FLUSH PRN (19:37)
[2018-05-20] MEDS ORDERED: Sodium Chloride 0.9% 10 ML Syringe FLUSH PRN (19:37)
--- NOTE | 2018-05-20 20:03 | EDM.PDOC ---
ED HPI GENERAL MEDICAL PROBLEM - General Chief Complaint: Cardiovascular Problem Stated Complaint: A FIP Time Seen by Provider: 05/20/18 20:56 - History of Present Illness INITIAL COMMENTS - FREE TEXT/NARRATIVE: HISTORY AND PHYSICAL: History of present illness: Patient's a 67-year-old female history of intermittent atrial fibrillation or presents with concern of palpitations and shortness of breath this is improved since arrival and on arrival in the ED she is in sinus rhythm. Her symptoms have improved dramatically she denies chest pain nausea vomiting diaphoresis fever or chills there's been no trauma. Review of systems: As per history of present illness and below otherwise all systems reviewed and negative. Past medical history: As per history of present illness and as reviewed below otherwise noncontributory. Surgical history: As per history of present illness and as reviewed below otherwise noncontributory. Social history: No reported history of drug or alcohol abuse. Family history: As per history of present illness and as reviewed below otherwise noncontributory. Physical exam: HEENT: Atraumatic, normocephalic, pupils reactive, negative for conjunctival pallor or scleral icterus, mucous membranes moist, throat clear, neck supple, nontender, trachea midline. Lungs: Clear to auscultation, breath sounds equal bilaterally, chest nontender. Heart: S1S2, regular, negative for clicks, rubs, or JVD. Abdomen: Soft, nondistended, nontender. Negative for masses or hepatosplenomegaly. Negative for costovertebral tenderness. Pelvis: Stable nontender. Genitourinary: Deferred. Rectal: Deferred. Extremities: Atraumatic, negative for cords or calf pain. Neurovascular unremarkable. Neuro: Awake, alert, oriented. Cranial nerves II through XII unremarkable. Cerebellum unremarkable. Motor and sensory unremarkable throughout. Exam nonfocal. Diagnostics: CBC CMP troponin PT/INR BNP chest x-ray EKG Therapeutics: IV O2 monitor Impression: #1 palpitations #2 dyspnea resolved #3 history of atrial fibrillation Definitive disposition and diagnosis as appropriate pending reevaluation and review of above. - Related Data Allergies Allergy/AdvReac Type Severity Reaction Status Date / Time nitrofurantoin Allergy Hives Verified 05/20/18 19:36 Home Meds: Home Meds Bifidobacterium Infantis [Align] 4.5 mg PO DAILY 05/07/18 [History] Calcium Carbonate/Vitamin D3 [Calcium 500-Vit D3 200 Tablet] 1 tab PO TID [History] Colesevelam [Welchol] 1 tab PO DAILY 05/07/18 [History] Furosemide 40 mg PO DAILY 05/07/18 [History] Levothyroxine 1 tab PO DAILY 05/07/18 [History] Lisinopril 5 mg PO DAILY 05/07/18 [History] Loperamide [Imodium] 1 tab PO QID PRN 05/07/18 [History] Methylcellulose [Citrucel] 500 mg PO BID 05/07/18 [History] Metoprolol Succinate 50 mg PO DAILY 05/07/18 [History] Mv-Min/Iron/Folic/Calcium/Vitk [Women's Multivitamin Tablet] 1 tab PO DAILY 07/21 [History] Oxybutynin Chloride [Ditropan Xl] 1 tab PO DAILY 05/07/18 [History] Spironolactone [Aldactone] 0.5 tab PO DAILY 05/07/18 [History] Warfarin [Coumadin] 3.75 mg PO MOWEFR@2100 05/07/18 [History] Warfarin [Coumadin] 7.5 mg PO SUTUTHSA@2100 05/07/18 [History] Past Medical History - Past Health History Medical/Surgical History: Denies Medical/Surgical History HEENT History: Reports: None Other HEENT History: wears glasses Cardiovascular History: Reports: Afib Respiratory History: Reports: None Gastrointestinal History: Reports: None Other Gastrointestinal History: bladder infection Genitourinary History: Reports: UTI, Recurrent 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: 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 History: Reports: Fracture Neurological History: Reports: None Psychiatric History: Reports: None Endocrine/Metabolic History: Reports: None Hematologic History: Reports: None Immunologic History: Reports: None Oncologic (Cancer) History: Reports: Thyroid Dermatologic History: Reports: None - Infectious Disease History Infectious Disease History: Reports: Chicken Pox, Measles, Mumps - Past Surgical History Head Surgeries/Procedures: Reports: None Female Surgical History: Reports: Hysterectomy, Other (See Below) Endocrine Surgical History: Reports: Thyroidectomy 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 Surgical History: Reports: Other (See Below) Other 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 Surgeries/Procedures:: patellar fracture repair Social & Family History - Family History Family Medical History: Noncontributory - Tobacco Use Smoking Status *Q: Never Smoker Second Hand Smoke Exposure: No - Caffeine Use Caffeine Use: Reports: None Caffeine Use Comment: sometimes a soda - Recreational Drug Use Recreational Drug Use: No ED ROS GENERAL - Review of Systems Review Of Systems: ROS reveals no pertinent complaints other than HPI. ED EXAM, GENERAL - Physical Exam Exam: See Below (See dictation) Course - Vital Signs Last Recorded V/S: Last Vital Signs Temp 36.6 C 05/20/18 19:36 Pulse 68 05/20/18 20:14 Resp 18 05/20/18 20:14 BP 135/79 05/20/18 20:14 Pulse Ox 96 05/20/18 20:14 - Orders/Labs/Meds Orders: Active Orders 24 hr Category Date Time Status Cardiac Monitoring [RC] . DIRECTED Care 05/20/18 19:37 Active EKG Documentation Completion [RC] STAT Care 05/20/18 19:37 Active Oxygen Therapy [RC] PRN Care 05/20/18 19:38 Active Chest 1V Frontal [CR] Stat Exams 05/20/18 19:38 Taken Sodium Chloride 0.9% [Saline Flush] Med 05/20/18 19:37 Active 10 ml FLUSH ASDIRECTED PRN Sodium Chloride 0.9% [Saline Flush] Med 05/20/18 19:37 Active 2.5 ml FLUSH ASDIRECTED PRN Peripheral IV Insertion Adult [OM.PC] Stat Oth 05/20/18 19:37 Ordered Medication Orders Sodium Chloride (Saline Flush) 10 ml FLUSH ASDIRECTED PRN PRN Reason: Keep Vein Open Sodium Chloride (Saline Flush) 2.5 ml FLUSH ASDIRECTED PRN PRN Reason: Keep Vein Open Labs: Laboratory Tests 05/20/18 05/20/18 05/20/18 Range/Units 19:00 19:00 19:20 WBC 6.53 (4.0-11.0) K/uL RBC 3.61 L (4.30-5.90) M/uL Hgb 11.4 L (12.0-16.0) g/dL Hct 32.6 L (36.0-46.0) % MCV 90.3 (80.0-98.0) fL MCH 31.6 (27.0-32.0) pg MCHC 35.0 (31.0-37.0) g/dL RDW Std Deviation 42.7 (28.0-62.0) fl RDW Coeff of [place] 13 (11.0-15.0) % Plt Count 262 (150-400) K/uL MPV 9.30 (7.40-12.00) fL Neut % (Auto) 48.2 (48.0-80.0) % Lymph % (Auto) 42.1 H (16.0-40.0) % [place] % (Auto) 7.0 (0.0-15.0) % Eos % (Auto) 2.1 (0.0-7.0) % Baso % (Auto) 0.6 (0.0-1.5) % Neut # (Auto) 3.1 (1.4-5.7) K/uL Lymph # (Auto) 2.8 H (0.6-2.4) K/uL [place] # (Auto) 0.5 (0.0-0.8) K/uL Eos # (Auto) 0.1 (0.0-0.7) K/uL Baso # (Auto) 0.0 (0.0-0.1) K/uL Nucleated RBC % 0.0 /100WBC Nucleated RBCs # 0 K/uL INR Sodium 140 (136-145) mmol/L Potassium 3.3 L (3.5-5.1) mmol/L Chloride 103 (98-107) mmol/L Carbon Dioxide 27.0 (21.0-32.0) mmol/L BUN 26 H (7.0-18.0) mg/dL Creatinine 1.2 H (0.6-1.0) mg/dL Est Cr Clr Drug Dosing 43.03 mL/min Estimated GFR (MDRD) 44.5 ml/min Glucose 106 (74-106) mg/dL Calcium 9.9 (8.5-10.1) mg/dL Total Bilirubin 1.0 (0.2-1.0) mg/dL AST 23 (15-37) IU/L ALT 30 (14-63) IU/L Alkaline Phosphatase 80 (46-116) U/L Troponin I < 0.050 (0.000-0.056) ng/mL B-Natriuretic Peptide 244 H (<100) PG/ML Total Protein 7.2 (6.4-8.2) g/dL Albumin 3.7 (3.4-5.0) g/dL Globulin 3.5 (2.6-4.0) g/dL Albumin/Globulin Ratio 1.1 (0.9-1.6) 05/20/18 Range/Units 19:50 WBC (4.0-11.0) K/uL RBC (4.30-5.90) M/uL Hgb (12.0-16.0) g/dL Hct (36.0-46.0) % MCV (80.0-98.0) fL MCH (27.0-32.0) pg MCHC (31.0-37.0) g/dL RDW Std Deviation (28.0-62.0) fl RDW Coeff of [place] (11.0-15.0) % Plt Count (150-400) K/uL MPV (7.40-12.00) fL Neut % (Auto) (48.0-80.0) % Lymph % (Auto) (16.0-40.0) % [place] % (Auto) (0.0-15.0) % Eos % (Auto) (0.0-7.0) % Baso % (Auto) (0.0-1.5) % Neut # (Auto) (1.4-5.7) K/uL Lymph # (Auto) (0.6-2.4) K/uL [place] # (Auto) (0.0-0.8) K/uL Eos # (Auto) (0.0-0.7) K/uL Baso # (Auto) (0.0-0.1) K/uL Nucleated RBC % /100WBC Nucleated RBCs # K/uL INR 2.02 Sodium (136-145) mmol/L Potassium (3.5-5.1) mmol/L Chloride (98-107) mmol/L Carbon Dioxide (21.0-32.0) mmol/L BUN (7.0-18.0) mg/dL Creatinine (0.6-1.0) mg/dL Est Cr Clr Drug Dosing mL/min Estimated GFR (MDRD) ml/min Glucose (74-106) mg/dL Calcium (8.5-10.1) mg/dL Total Bilirubin (0.2-1.0) mg/dL AST (15-37) IU/L ALT (14-63) IU/L Alkaline Phosphatase (46-116) U/L Troponin I (0.000-0.056) ng/mL B-Natriuretic Peptide (<100) PG/ML Total Protein (6.4-8.2) g/dL Albumin (3.4-5.0) g/dL Globulin (2.6-4.0) g/dL Albumin/Globulin Ratio (0.9-1.6) Meds: Medications Generic Name Dose Route Start Last Admin Trade Name Freq PRN Reason Stop Dose Admin Sodium Chloride 10 ml 05/20/18 19:37 Saline Flush FLUSH ASDIRECTED PRN Keep Vein Open Sodium Chloride 2.5 ml 05/20/18 19:37 Saline Flush FLUSH ASDIRECTED PRN Keep Vein Open Departure - Departure Time of Disposition: 20:56 Disposition: Refer to Observation Condition: Good Clinical Impression: Palpitations, History of atrial fibrillation, Dyspnea Referrals: Jos Smith MD [Primary Care Provider] - Forms: ED Department Discharge - My Orders Last 24 Hours: My Active Orders 05/20/18 19:37 Cardiac Monitoring [RC] . DIRECTED EKG Documentation Completion [RC] STAT Sodium Chloride 0.9% [Saline Flush] 10 ml FLUSH ASDIRECTED PRN Sodium Chloride 0.9% [Saline Flush] 2.5 ml FLUSH ASDIRECTED PRN Peripheral IV Insertion Adult [OM.PC] Stat 05/20/18 19:38 Oxygen Therapy [RC] PRN Chest 1V Frontal [CR] Stat - Assessment/Plan Last 24 Hours: My Active Orders 05/20/18 19:37 Cardiac Monitoring [RC] . DIRECTED EKG Documentation Completion [RC] STAT Sodium Chloride 0.9% [Saline Flush] 10 ml FLUSH ASDIRECTED PRN Sodium Chloride 0.9% [Saline Flush] 2.5 ml FLUSH ASDIRECTED PRN Peripheral IV Insertion Adult [OM.PC] Stat 05/20/18 19:38 Oxygen Therapy [RC] PRN Chest 1V Frontal [CR] Stat
[2018-05-20 20:22] LABS: CHLORIDE,CL 103 mmol/L (98-107); SODIUM,NA 140 mmol/L (136-145)
[2018-05-20] MEDS ORDERED: Potassium Chloride 20 MEQ Tab.ER PO ONE (22:32)
--- NOTE | 2018-05-20 22:57 | PCM.HP ---
H&P History of Present Illness - General Date of Service: 05/20/18 Admit Problem/Dx: Admission Diagnosis/Problem Admission Diagnosis/Problem Dyspnea - History of Present Illness Initial Comments - Free Text/Narative: 67 yo female with pmh of atrial fibrillation, s/p thyroidectomy in Mar 2018, and heart failure. She was admitted last with week for atrial fibrillation with RVR. Since discharge she was doing well until today she developed shortness of breath and palpitations. It has resolved prior to being seen in the ED. - Related Data Allergies/Adverse Reactions: Allergies Allergy/AdvReac Type Severity Reaction Status Date / Time nitrofurantoin Allergy Hives Verified 05/20/18 19:36 Home Medications: Home Meds Bifidobacterium Infantis [Align] 4 mg PO DAILY 05/07/18 [History] Calcium Carbonate/Vitamin D3 [Calcium 500-Vit D3 200 Tablet] 1 tab PO DAILY@ 1400 05/07/18 [History] Colesevelam [Welchol] 1,250 mg PO BID 05/07/18 [History] Furosemide 20 mg PO DAILY 05/07/18 [History] Levothyroxine 1 tab PO DAILY@0730 05/07/18 [History] Lisinopril 5 mg PO DAILY 05/07/18 [History] Loperamide [Imodium] 1 tab PO QID PRN 05/07/18 [History] Methylcellulose [Citrucel] 1,000 mg PO BID 05/07/18 [History] Metoprolol Succinate 125 mg PO BEDTIME 05/07/18 [History] Mv-Min/Iron/Folic/Calcium/Vitk [Women's Multivitamin Tablet] 1 tab PO DAILY 07/21 [History] Oxybutynin Chloride [Ditropan Xl] 10 mg PO DAILY 05/07/18 [History] Spironolactone [Aldactone] 12.5 mg PO DAILY 05/07/18 [History] Warfarin [Coumadin] 3.75 mg PO 05/07/18 [History] Warfarin [Coumadin] 7.5 mg PO MOWEFR@2100 05/07/18 [History] Past Medical History - Past Health History Medical/Surgical History: Denies Medical/Surgical History HEENT History: Reports: None Other HEENT History: wears glasses Cardiovascular History: Reports: Afib Respiratory History: Reports: None Gastrointestinal History: Reports: None Other Gastrointestinal History: bladder infection Genitourinary History: Reports: UTI, Recurrent 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 Neurological History: Reports: None Psychiatric History: Reports: None Endocrine/Metabolic History: Reports: None Hematologic History: Reports: None Immunologic History: Reports: None Oncologic (Cancer) History: Reports: Thyroid Dermatologic History: Reports: None - Infectious Disease History Infectious Disease History: Reports: Chicken Pox, Measles, Mumps - Past Surgical History Head Surgeries/Procedures: Reports: None Female Surgical History: Reports: Hysterectomy, Other (See Below) Endocrine Surgical History: Reports: Thyroidectomy 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 Surgical History: Reports: Other (See Below) Other 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 Surgeries/Procedures:: patellar fracture repair Social & Family History - Family History Family Medical History: Noncontributory - Tobacco Use Smoking Status *Q: Never Smoker Second Hand Smoke Exposure: No - Caffeine Use Caffeine Use: Reports: None Caffeine Use Comment: sometimes a soda - Recreational Drug Use Recreational Drug Use: No H&P Review of Systems - Review of Systems: Review Of Systems: ROS reveals no pertinent complaints other than HPI. Exam - Exam Exam: See Below - Vital Signs Vital Signs: Last Vital Signs Temp 36.2 C 05/20/18 21:54 Pulse 60 05/20/18 21:54 Resp 15 05/20/18 21:54 BP 171/75 H 05/20/18 21:54 Pulse Ox 98 05/20/18 21:54 Weight: 81.647 kg - Exam General: Alert, Oriented HEENT: Mucosa Moist & [place] Lungs: Clear to Auscultation, Normal Respiratory Effort Cardiovascular: Regular Rate, Regular Rhythm GI/Abdominal Exam: Soft, Non-Tender Extremities: Non-Tender, No Pedal Edema Skin: Warm, Dry, Intact - Patient Data Lab Results Last 24 hrs: Laboratory Results - last 24 hr 05/20/18 05/20/18 05/20/18 Range/Units 19:00 19:00 19:20 WBC 6.53 (4.0-11.0) K/uL RBC 3.61 L (4.30-5.90) M/uL Hgb 11.4 L (12.0-16.0) g/dL Hct 32.6 L (36.0-46.0) % MCV 90.3 (80.0-98.0) fL MCH 31.6 (27.0-32.0) pg MCHC 35.0 (31.0-37.0) g/dL RDW Std Deviation 42.7 (28.0-62.0) fl RDW Coeff of [place] 13 (11.0-15.0) % Plt Count 262 (150-400) K/uL MPV 9.30 (7.40-12.00) fL Neut % (Auto) 48.2 (48.0-80.0) % Lymph % (Auto) 42.1 H (16.0-40.0) % [place] % (Auto) 7.0 (0.0-15.0) % Eos % (Auto) 2.1 (0.0-7.0) % Baso % (Auto) 0.6 (0.0-1.5) % Neut # (Auto) 3.1 (1.4-5.7) K/uL Lymph # (Auto) 2.8 H (0.6-2.4) K/uL [place] # (Auto) 0.5 (0.0-0.8) K/uL Eos # (Auto) 0.1 (0.0-0.7) K/uL Baso # (Auto) 0.0 (0.0-0.1) K/uL Nucleated RBC % 0.0 /100WBC Nucleated RBCs # 0 K/uL INR Sodium 140 (136-145) mmol/L Potassium 3.3 L (3.5-5.1) mmol/L Chloride 103 (98-107) mmol/L Carbon Dioxide 27.0 (21.0-32.0) mmol/L BUN 26 H (7.0-18.0) mg/dL Creatinine 1.2 H (0.6-1.0) mg/dL Est Cr Clr Drug Dosing 43.03 mL/min Estimated GFR (MDRD) 44.5 ml/min Glucose 106 (74-106) mg/dL Calcium 9.9 (8.5-10.1) mg/dL Total Bilirubin 1.0 (0.2-1.0) mg/dL AST 23 (15-37) IU/L ALT 30 (14-63) IU/L Alkaline Phosphatase 80 (46-116) U/L Troponin I < 0.050 (0.000-0.056) ng/mL B-Natriuretic Peptide 244 H (<100) PG/ML Total Protein 7.2 (6.4-8.2) g/dL Albumin 3.7 (3.4-5.0) g/dL Globulin 3.5 (2.6-4.0) g/dL Albumin/Globulin Ratio 1.1 (0.9-1.6) Urine Color Urine Appearance Urine pH (5.0-8.0) Ur Specific [place] (1.001-1.035) Urine Protein (NEGATIVE) mg/dL Urine Glucose (UA) (NEGATIVE) mg/dL Urine Ketones (NEGATIVE) mg/dL Urine Occult Blood (NEGATIVE) Urine Nitrite (NEGATIVE) Urine Bilirubin (NEGATIVE) Urine Urobilinogen (<2.0) EU/dL Ur Leukocyte Esterase (NEGATIVE) Urine RBC (0-2/HPF) Urine WBC (0-5/HPF) Ur Epithelial Cells (NONE-FEW) Urine Bacteria (NEGATIVE) 05/20/18 05/20/18 Range/Units 19:50 21:15 WBC (4.0-11.0) K/uL RBC (4.30-5.90) M/uL Hgb (12.0-16.0) g/dL Hct (36.0-46.0) % MCV (80.0-98.0) fL MCH (27.0-32.0) pg MCHC (31.0-37.0) g/dL RDW Std Deviation (28.0-62.0) fl RDW Coeff of [place] (11.0-15.0) % Plt Count (150-400) K/uL MPV (7.40-12.00) fL Neut % (Auto) (48.0-80.0) % Lymph % (Auto) (16.0-40.0) % [place] % (Auto) (0.0-15.0) % Eos % (Auto) (0.0-7.0) % Baso % (Auto) (0.0-1.5) % Neut # (Auto) (1.4-5.7) K/uL Lymph # (Auto) (0.6-2.4) K/uL [place] # (Auto) (0.0-0.8) K/uL Eos # (Auto) (0.0-0.7) K/uL Baso # (Auto) (0.0-0.1) K/uL Nucleated RBC % /100WBC Nucleated RBCs # K/uL INR 2.02 Sodium (136-145) mmol/L Potassium (3.5-5.1) mmol/L Chloride (98-107) mmol/L Carbon Dioxide (21.0-32.0) mmol/L BUN (7.0-18.0) mg/dL Creatinine (0.6-1.0) mg/dL Est Cr Clr Drug Dosing mL/min Estimated GFR (MDRD) ml/min Glucose (74-106) mg/dL Calcium (8.5-10.1) mg/dL Total Bilirubin (0.2-1.0) mg/dL AST (15-37) IU/L ALT (14-63) IU/L Alkaline Phosphatase (46-116) U/L Troponin I (0.000-0.056) ng/mL B-Natriuretic Peptide (<100) PG/ML Total Protein (6.4-8.2) g/dL Albumin (3.4-5.0) g/dL Globulin (2.6-4.0) g/dL Albumin/Globulin Ratio (0.9-1.6) Urine Color YELLOW Urine Appearance CLEAR Urine pH 5.5 (5.0-8.0) Ur Specific [place] 1.010 (1.001-1.035) Urine Protein NEGATIVE (NEGATIVE) mg/dL Urine Glucose (UA) NEGATIVE (NEGATIVE) mg/dL Urine Ketones NEGATIVE (NEGATIVE) mg/dL Urine Occult Blood SMALL H (NEGATIVE) Urine Nitrite NEGATIVE (NEGATIVE) Urine Bilirubin NEGATIVE (NEGATIVE) Urine Urobilinogen 0.2 (<2.0) EU/dL Ur Leukocyte Esterase TRACE H (NEGATIVE) Urine RBC 1-3 (0-2/HPF) Urine WBC 0-2 (0-5/HPF) Ur Epithelial Cells OCCASIONAL (NONE-FEW) Urine Bacteria RARE (NEGATIVE) Result Diagrams: 05/20/18 19:00 05/20/18 19:20 Problem List Initiated/Reviewed/Updated: Yes Orders Last 24hrs: Active Orders 24 hr Category Date Time Status Patient Status [ADT] Stat ADT 05/20/18 21:00 Active Cardiac Monitoring [RC] . DIRECTED Care 05/20/18 19:37 Active EKG Documentation Completion [RC] STAT Care 05/20/18 19:37 Active Notify Provider Consults [RC] ASDIRECTED Care 05/20/18 21:00 Active Oxygen Therapy [RC] PRN Care 05/20/18 19:38 Active Consult to Physician [CONS] Stat Cons 05/20/18 20:59 Active Chest 1V Frontal [CR] Stat Exams 05/20/18 19:38 Taken MAGNESIUM [CHEM] Routine Lab 05/20/18 22:33 Ordered Metoprolol Succinate [Toprol XL] Med 05/21/18 21:00 Active 125 mg PO BEDTIME Sodium Chloride 0.9% [Saline Flush] Med 05/20/18 19:37 Active 10 ml FLUSH ASDIRECTED PRN Sodium Chloride 0.9% [Saline Flush] Med 05/20/18 19:37 Active 2.5 ml FLUSH ASDIRECTED PRN Peripheral IV Insertion Adult [OM.PC] Stat Oth 05/20/18 19:37 Ordered Medication Orders Metoprolol Succinate (Toprol Xl) 125 mg PO BEDTIME MACHO Sodium Chloride (Saline Flush) 10 ml FLUSH ASDIRECTED PRN PRN Reason: Keep Vein Open Sodium Chloride (Saline Flush) 2.5 ml FLUSH ASDIRECTED PRN PRN Reason: Keep Vein Open Assessment/Plan Comment:: 67 yo female with pmh of atrial fibrillation who presents with palpitations. She currently is in normal sinus rhythm with HR in the 50s-70s. We will continue patient's metoprolol. We ill replace her potassium and check a magnesium level.
[2018-05-20] MEDS ORDERED: Metoprolol Succinate 50 MG Tab.ER ONE (23:12)
[2018-05-20] MEDS ORDERED: Warfarin 5 MG Tab PO SCH (23:15)
[2018-05-21] MEDS ORDERED: Calcium Polycarbophil 625 MG Tab PO SCH (01:00)
[2018-05-21] MEDS: Magnesium Oxide 400 MG Tab PO SCH ×2 (01:09→09:40)
[2018-05-21] MEDS: Colesevelam 625 MG Tab PO SCH ×2 (01:09→09:40)
[2018-05-21] MEDS: Calcitriol 0.25 MCG Cap PO SCH ×2 (01:11→10:35)
--- NOTE | 2018-05-21 08:34 | CR ---
Indication: AFib Technique: Chest 1 view Comparison: 05/07/18. Findings/Impression: Cardiovascular and mediastinum: Persistent cardiomegaly with prominence of the right cardiac border. A mildly unfolded aorta. Lungs and pleural space: Lungs are clear. No sign of infiltrate or mass. No sign of pleural effusion. No pneumothorax. Bones and soft tissues: No significant findings. Dictated by Bernard Kramer MD @ 05/20/2018 8:33:59 PM Dictated by: Bernard Kramer MD @ 05/20/2018 20:34:22 (Electronically Signed)
[2018-05-21] MEDS ORDERED: Calcitriol 0.25 MCG Cap PO SCH (09:00)
[2018-05-21] MEDS ORDERED: CITRUCEL PO SCH (09:00)
--- NOTE | 2018-05-21 09:48 | PCM.DCSUM1 ---
<Bernadine Horton M - Last Filed: 05/21/18 10:21> Discharge Summary - Hospital Course Brief History: 67 yo female with pmh of atrial fibrillation, s/p thyroidectomy in Mar 2018, and heart failure. She was admitted last with week for atrial fibrillation with RVR. Since discharge she was doing well until today she developed shortness of breath and palpitations. It has resolved prior to being seen in the ED. Diagnosis: Stroke: No - Discharge Data Discharge Date: 05/21/18 Discharge Disposition: Home, Self-Care 01 Condition: Good - Patient Summary/Data Consults: Consultations 05/20/18 20:59 Consult to Physician [CONS] Stat - Patient Instructions Diet: Heart Healthy Diet, Low Sodium Activity: As Tolerated Notify Provider of: Fever, Increased Pain, Swelling and Redness, Drainage, Nausea and/or Vomiting - Discharge Plan *PRESCRIPTION DRUG MONITORING PROGRAM REVIEWED*: Not Applicable *COPY OF PRESCRIPTION DRUG MONITORING REPORT IN PATIENT LIZETT: Not Applicable Home Medications: Home Meds Bifidobacterium Infantis [Align] 4 mg PO DAILY 05/07/18 [History] Calcium Carbonate/Vitamin D3 [Calcium 500-Vit D3 200 Tablet] 1 tab PO DAILY@ 1400 05/07/18 [History] Colesevelam [Welchol] 1,250 mg PO BID 05/07/18 [History] Furosemide 20 mg PO DAILY 05/07/18 [History] Levothyroxine 1 tab PO DAILY@0730 05/07/18 [History] Lisinopril 5 mg PO DAILY 05/07/18 [History] Loperamide [Imodium] 1 tab PO QID PRN 05/07/18 [History] Methylcellulose [Citrucel] 1,000 mg PO DAILY 05/07/18 [History] Metoprolol Succinate 125 mg PO BEDTIME 05/07/18 [History] Mv-Min/Iron/Folic/Calcium/Vitk [Women's Multivitamin Tablet] 1 tab PO DAILY 07/21 [History] Oxybutynin Chloride [Ditropan Xl] 10 mg PO DAILY 05/07/18 [History] Spironolactone [Aldactone] 12.5 mg PO DAILY 05/07/18 [History] Warfarin [Coumadin] 3.75 mg PO ASDIRECTED 05/07/18 [History] Warfarin [Coumadin] 7.5 mg PO MOWEFR@2100 05/07/18 [History] Calcitriol 0.5 mcg PO BID 05/21/18 [History] Patient Handouts: Shortness of Breath, Adult, [id number], Palpitations, Easy- to-Read Referrals: [facility] [Outside] Jos Smith MD [Primary Care Provider] - 05/29/18 9:30 am - Discharge Summary/Plan Comment DC Time >30 min.: No Discharge Summary/Plan Comment: Discharge Diagnoses: Afib Amanda was admitted secondary to paroxysmal afib, which resolved prior to arrival to the ED. She was placed on telemetry and monitored overnight. No events. No Afib. Dr Rosen was consulted and visited with patient this morning. NO medication changes at this time. Please see consultation note. She is to followup with PCP and with [place] regarding post thyroidectomy and potentially a [employer] [employer] there for another ablation. She will be discharged home today. No concerns at this time. She is to return to ED or clinic if concerns should arise. - General Info Date of Service: 05/21/18 Admission Dx/Problem (Free Text: Admission Diagnosis/Problem Admission Diagnosis/Problem Dyspnea Subjective Update: Feel good this morning, No concerns. No chest pain or SOB. Ready to be discharged home. Functional Status: Reports: Pain Controlled, Tolerating Diet, Ambulating, Urinating - Review of Systems General: Reports: No Symptoms. Denies: Fever, Weakness Pulmonary: Reports: No Symptoms. Denies: Shortness of Breath, Cough, Sputum Cardiovascular: Reports: No Symptoms. Denies: Chest Pain, Palpitations, Orthopnea, Edema Gastrointestinal: Reports: No Symptoms. Denies: Abdominal Pain, Nausea, Vomiting Genitourinary: Reports: No Symptoms. Denies: Dysuria, Frequency, Burning Skin: Reports: No Symptoms Neurological: Reports: No Symptoms Psychiatric: Reports: No Symptoms - Patient Data Vitals - Most Recent: Last Vital Signs Temp 97.8 F 05/21/18 08:00 Pulse 56 L 05/21/18 08:00 Resp 18 05/21/18 08:00 BP 139/64 05/21/18 08:00 Pulse Ox 97 05/21/18 08:00 Weight - Most Recent: 68.13 kg I&O - Last 24 hours: Intake & Output 05/20/18 05/21/18 05/21/18 22:59 06:59 14:59 Intake Total 450 Output Total 350 Balance 100 Lab Results - Last 24 hrs: Laboratory Results - last 24 hr 05/20/18 05/20/18 05/20/18 Range/Units 19:00 19:00 19:20 WBC 6.53 (4.0-11.0) K/uL RBC 3.61 L (4.30-5.90) M/uL Hgb 11.4 L (12.0-16.0) g/dL Hct 32.6 L (36.0-46.0) % MCV 90.3 (80.0-98.0) fL MCH 31.6 (27.0-32.0) pg MCHC 35.0 (31.0-37.0) g/dL RDW Std Deviation 42.7 (28.0-62.0) fl RDW Coeff of Caroline 13 (11.0-15.0) % Plt Count 262 (150-400) K/uL MPV 9.30 (7.40-12.00) fL Neut % (Auto) 48.2 (48.0-80.0) % Lymph % (Auto) 42.1 H (16.0-40.0) % [place] % (Auto) 7.0 (0.0-15.0) % Eos % (Auto) 2.1 (0.0-7.0) % Baso % (Auto) 0.6 (0.0-1.5) % Neut # (Auto) 3.1 (1.4-5.7) K/uL Lymph # (Auto) 2.8 H (0.6-2.4) K/uL [place] # (Auto) 0.5 (0.0-0.8) K/uL Eos # (Auto) 0.1 (0.0-0.7) K/uL Baso # (Auto) 0.0 (0.0-0.1) K/uL Nucleated RBC % 0.0 /100WBC Nucleated RBCs # 0 K/uL INR Sodium 140 (136-145) mmol/L Potassium 3.3 L (3.5-5.1) mmol/L Chloride 103 (98-107) mmol/L Carbon Dioxide 27.0 (21.0-32.0) mmol/L BUN 26 H (7.0-18.0) mg/dL Creatinine 1.2 H (0.6-1.0) mg/dL Est Cr Clr Drug Dosing 43.03 mL/min Estimated GFR (MDRD) 44.5 ml/min Glucose 106 (74-106) mg/dL Calcium 9.9 (8.5-10.1) mg/dL Magnesium (1.8-2.4) mg/dL Total Bilirubin 1.0 (0.2-1.0) mg/dL AST 23 (15-37) IU/L ALT 30 (14-63) IU/L Alkaline Phosphatase 80 (46-116) U/L Troponin I < 0.050 (0.000-0.056) ng/mL B-Natriuretic Peptide 244 H (<100) PG/ML Total Protein 7.2 (6.4-8.2) g/dL Albumin 3.7 (3.4-5.0) g/dL Globulin 3.5 (2.6-4.0) g/dL Albumin/Globulin Ratio 1.1 (0.9-1.6) Urine Color Urine Appearance Urine pH (5.0-8.0) Ur Specific [place] (1.001-1.035) Urine Protein (NEGATIVE) mg/dL Urine Glucose (UA) (NEGATIVE) mg/dL Urine Ketones (NEGATIVE) mg/dL Urine Occult Blood (NEGATIVE) Urine Nitrite (NEGATIVE) Urine Bilirubin (NEGATIVE) Urine Urobilinogen (<2.0) EU/dL Ur Leukocyte Esterase (NEGATIVE) Urine RBC (0-2/HPF) Urine WBC (0-5/HPF) Ur Epithelial Cells (NONE-FEW) Urine Bacteria (NEGATIVE) 05/20/18 05/20/18 05/20/18 Range/Units 19:50 21:15 23:30 WBC (4.0-11.0) K/uL RBC (4.30-5.90) M/uL Hgb (12.0-16.0) g/dL Hct (36.0-46.0) % MCV (80.0-98.0) fL MCH (27.0-32.0) pg MCHC (31.0-37.0) g/dL RDW Std Deviation (28.0-62.0) fl RDW Coeff of Caroline (11.0-15.0) % Plt Count (150-400) K/uL MPV (7.40-12.00) fL Neut % (Auto) (48.0-80.0) % Lymph % (Auto) (16.0-40.0) % [place] % (Auto) (0.0-15.0) % Eos % (Auto) (0.0-7.0) % Baso % (Auto) (0.0-1.5) % Neut # (Auto) (1.4-5.7) K/uL Lymph # (Auto) (0.6-2.4) K/uL [place] # (Auto) (0.0-0.8) K/uL Eos # (Auto) (0.0-0.7) K/uL Baso # (Auto) (0.0-0.1) K/uL Nucleated RBC % /100WBC Nucleated RBCs # K/uL INR 2.02 Sodium (136-145) mmol/L Potassium (3.5-5.1) mmol/L Chloride (98-107) mmol/L Carbon Dioxide (21.0-32.0) mmol/L BUN (7.0-18.0) mg/dL Creatinine (0.6-1.0) mg/dL Est Cr Clr Drug Dosing mL/min Estimated GFR (MDRD) ml/min Glucose (74-106) mg/dL Calcium (8.5-10.1) mg/dL Magnesium 1.8 (1.8-2.4) mg/dL Total Bilirubin (0.2-1.0) mg/dL AST (15-37) IU/L ALT (14-63) IU/L Alkaline Phosphatase (46-116) U/L Troponin I (0.000-0.056) ng/mL B-Natriuretic Peptide (<100) PG/ML Total Protein (6.4-8.2) g/dL Albumin (3.4-5.0) g/dL Globulin (2.6-4.0) g/dL Albumin/Globulin Ratio (0.9-1.6) Urine Color YELLOW Urine Appearance CLEAR Urine pH 5.5 (5.0-8.0) Ur Specific [place] 1.010 (1.001-1.035) Urine Protein NEGATIVE (NEGATIVE) mg/dL Urine Glucose (UA) NEGATIVE (NEGATIVE) mg/dL Urine Ketones NEGATIVE (NEGATIVE) mg/dL Urine Occult Blood SMALL H (NEGATIVE) Urine Nitrite NEGATIVE (NEGATIVE) Urine Bilirubin NEGATIVE (NEGATIVE) Urine Urobilinogen 0.2 (<2.0) EU/dL Ur Leukocyte Esterase TRACE H (NEGATIVE) Urine RBC 1-3 (0-2/HPF) Urine WBC 0-2 (0-5/HPF) Ur Epithelial Cells OCCASIONAL (NONE-FEW) Urine Bacteria RARE (NEGATIVE) 05/21/18 05/21/18 05/21/18 Range/Units 01:20 01:20 07:13 WBC 7.84 (4.0-11.0) K/uL RBC 3.49 L (4.30-5.90) M/uL Hgb 11.0 L (12.0-16.0) g/dL Hct 31.7 L (36.0-46.0) % MCV 90.8 (80.0-98.0) fL MCH 31.5 (27.0-32.0) pg MCHC 34.7 (31.0-37.0) g/dL RDW Std Deviation 42.8 (28.0-62.0) fl RDW Coeff of Caroline 13 (11.0-15.0) % Plt Count 250 (150-400) K/uL MPV 9.30 (7.40-12.00) fL Neut % (Auto) 55.8 (48.0-80.0) % Lymph % (Auto) 36.4 (16.0-40.0) % [place] % (Auto) 5.6 (0.0-15.0) % Eos % (Auto) 1.7 (0.0-7.0) % Baso % (Auto) 0.5 (0.0-1.5) % Neut # (Auto) 4.4 (1.4-5.7) K/uL Lymph # (Auto) 2.9 H (0.6-2.4) K/uL [place] # (Auto) 0.4 (0.0-0.8) K/uL Eos # (Auto) 0.1 (0.0-0.7) K/uL Baso # (Auto) 0.0 (0.0-0.1) K/uL Nucleated RBC % 0.0 /100WBC Nucleated RBCs # 0 K/uL INR Sodium (136-145) mmol/L Potassium (3.5-5.1) mmol/L Chloride (98-107) mmol/L Carbon Dioxide (21.0-32.0) mmol/L BUN (7.0-18.0) mg/dL Creatinine (0.6-1.0) mg/dL Est Cr Clr Drug Dosing mL/min Estimated GFR (MDRD) ml/min Glucose (74-106) mg/dL Calcium (8.5-10.1) mg/dL Magnesium (1.8-2.4) mg/dL Total Bilirubin (0.2-1.0) mg/dL AST (15-37) IU/L ALT (14-63) IU/L Alkaline Phosphatase (46-116) U/L Troponin I < 0.050 < 0.050 (0.000-0.056) ng/mL B-Natriuretic Peptide (<100) PG/ML Total Protein (6.4-8.2) g/dL Albumin (3.4-5.0) g/dL Globulin (2.6-4.0) g/dL Albumin/Globulin Ratio (0.9-1.6) Urine Color Urine Appearance Urine pH (5.0-8.0) Ur Specific [place] (1.001-1.035) Urine Protein (NEGATIVE) mg/dL Urine Glucose (UA) (NEGATIVE) mg/dL Urine Ketones (NEGATIVE) mg/dL Urine Occult Blood (NEGATIVE) Urine Nitrite (NEGATIVE) Urine Bilirubin (NEGATIVE) Urine Urobilinogen (<2.0) EU/dL Ur Leukocyte Esterase (NEGATIVE) Urine RBC (0-2/HPF) Urine WBC (0-5/HPF) Ur Epithelial Cells (NONE-FEW) Urine Bacteria (NEGATIVE) 05/21/18 Range/Units 07:13 WBC (4.0-11.0) K/uL RBC (4.30-5.90) M/uL Hgb (12.0-16.0) g/dL Hct (36.0-46.0) % MCV (80.0-98.0) fL MCH (27.0-32.0) pg MCHC (31.0-37.0) g/dL RDW Std Deviation (28.0-62.0) fl RDW Coeff of Caroline (11.0-15.0) % Plt Count (150-400) K/uL MPV (7.40-12.00) fL Neut % (Auto) (48.0-80.0) % Lymph % (Auto) (16.0-40.0) % [place] % (Auto) (0.0-15.0) % Eos % (Auto) (0.0-7.0) % Baso % (Auto) (0.0-1.5) % Neut # (Auto) (1.4-5.7) K/uL Lymph # (Auto) (0.6-2.4) K/uL [place] # (Auto) (0.0-0.8) K/uL Eos # (Auto) (0.0-0.7) K/uL Baso # (Auto) (0.0-0.1) K/uL Nucleated RBC % /100WBC Nucleated RBCs # K/uL INR Sodium 143 (136-145) mmol/L Potassium 3.7 (3.5-5.1) mmol/L Chloride 107 (98-107) mmol/L Carbon Dioxide 26.5 (21.0-32.0) mmol/L BUN 20 H (7.0-18.0) mg/dL Creatinine 1.0 (0.6-1.0) mg/dL Est Cr Clr Drug Dosing 51.63 mL/min Estimated GFR (MDRD) 55.0 ml/min Glucose 100 (74-106) mg/dL Calcium 9.1 (8.5-10.1) mg/dL Magnesium 1.9 (1.8-2.4) mg/dL Total Bilirubin (0.2-1.0) mg/dL AST (15-37) IU/L ALT (14-63) IU/L Alkaline Phosphatase (46-116) U/L Troponin I (0.000-0.056) ng/mL B-Natriuretic Peptide (<100) PG/ML Total Protein (6.4-8.2) g/dL Albumin (3.4-5.0) g/dL Globulin (2.6-4.0) g/dL Albumin/Globulin Ratio (0.9-1.6) Urine Color Urine Appearance Urine pH (5.0-8.0) Ur Specific [place] (1.001-1.035) Urine Protein (NEGATIVE) mg/dL Urine Glucose (UA) (NEGATIVE) mg/dL Urine Ketones (NEGATIVE) mg/dL Urine Occult Blood (NEGATIVE) Urine Nitrite (NEGATIVE) Urine Bilirubin (NEGATIVE) Urine Urobilinogen (<2.0) EU/dL Ur Leukocyte Esterase (NEGATIVE) Urine RBC (0-2/HPF) Urine WBC (0-5/HPF) Ur Epithelial Cells (NONE-FEW) Urine Bacteria (NEGATIVE) Med Orders - Current: Current Medications Calcitriol (Rocaltrol) 0.5 mcg PO BID [facility] Last Admin: 05/21/18 01:11 Dose: 0.5 mcg Colesevelam HCl (Welchol) 1,250 mg PO BID [facility] Last Admin: 05/21/18 09:40 Dose: 1,250 mg Magnesium Oxide (Magnesium Oxide) 400 mg PO BID [facility] Last Admin: 05/21/18 09:40 Dose: 400 mg Metoprolol Succinate (Toprol Xl) 125 mg PO BEDTIME [facility] Last Admin: 05/20/18 23:38 Dose: 125 mg Citrucel ( Methylcellulose 500 Mg) Own Med 1,000 mg PO DAILY [facility] Sodium Chloride (Saline Flush) 10 ml FLUSH ASDIRECTED PRN PRN Reason: Keep Vein Open Sodium Chloride (Saline Flush) 2.5 ml FLUSH ASDIRECTED PRN PRN Reason: Keep Vein Open Warfarin Sodium (Coumadin) 7.5 mg PO MoWeFr@1400 [facility] Last Admin: 05/20/18 23:39 Dose: 7.5 mg Discontinued Medications Calcitriol (Rocaltrol) 0.5 mcg PO BID [facility] Calcium Polycarbophil (Fibercon) 1,250 mg PO BID [facility] Last Admin: 05/21/18 05:23 Dose: Not Given Metoprolol Succinate (Toprol Xl) Confirm Administered Dose 150 mg .ROUTE .STK- MED ONE Stop: 05/20/18 23:13 Last Admin: 05/20/18 23:37 Dose: Not Given Citrucel ( Methylcellulose 1, 000 Mg) Own Med* 1,000 mg PO BID [facility] Last Admin: 05/21/18 05:23 Dose: Not Given Potassium Chloride (Klor-Con M20) 40 meq PO ONETIME ONE Stop: 05/20/18 22:33 Last Admin: 05/20/18 23:40 Dose: 40 meq - Exam General: Reports: Alert, Oriented, Cooperative, No Acute Distress Neck: Reports: Supple Lungs: Reports: Clear to Auscultation, Normal Respiratory Effort Cardiovascular: Reports: Regular Rate, Regular Rhythm, No Murmurs. Denies: Irregular Rhythm, Tachycardia Neurological: Reports: No New Focal Deficit Psy/Mental Status: Reports: Alert, Normal Affect, Normal Mood <Pako Martin M - Last Filed: 05/22/18 10:19> Discharge Summary - Hospital Course Free Text/Narrative:: I have examined the patient independently of Bernadine Horton CNP. I have discussed the case with her. I agree with the assessment and plan of care for this patient as outlined by her. Please see orders. - Patient Summary/Data Consults: Consultations 05/20/18 20:59 Consult to Physician [CONS] Stat - Patient Data Vitals - Most Recent: Last Vital Signs Temp 36.6 C 05/21/18 11:47 Pulse 61 05/21/18 11:47 Resp 16 05/21/18 11:47 BP 134/58 L 05/21/18 11:47 Pulse Ox 98 05/21/18 11:47 Med Orders - Current: Current Medications Discontinued Medications Calcitriol (Rocaltrol) 0.5 mcg PO BID [facility] Calcitriol (Rocaltrol) 0.5 mcg PO BID [facility] Last Admin: 05/21/18 10:35 Dose: 0.5 mcg Calcium Polycarbophil (Fibercon) 1,250 mg PO BID [facility] Last Admin: 05/21/18 05:23 Dose: Not Given Colesevelam HCl (Welchol) 1,250 mg PO BID [facility] Last Admin: 05/21/18 09:40 Dose: 1,250 mg Magnesium Oxide (Magnesium Oxide) 400 mg PO BID [facility] Last Admin: 05/21/18 09:40 Dose: 400 mg Metoprolol Succinate (Toprol Xl) 125 mg PO BEDTIME [facility] Last Admin: 05/20/18 23:38 Dose: 125 mg Metoprolol Succinate (Toprol Xl) Confirm Administered Dose 150 mg .ROUTE .STK- MED ONE Stop: 05/20/18 23:13 Last Admin: 05/20/18 23:37 Dose: Not Given Citrucel ( Methylcellulose 1, 000 Mg) Own Med* 1,000 mg PO BID [facility] Last Admin: 05/21/18 05:23 Dose: Not Given Citrucel ( Methylcellulose 500 Mg) Own Med 1,000 mg PO DAILY [facility] Last Admin: 05/21/18 10:35 Dose: 1,000 mg Potassium Chloride (Klor-Con M20) 40 meq PO ONETIME ONE Stop: 05/20/18 22:33 Last Admin: 05/20/18 23:40 Dose: 40 meq Sodium Chloride (Saline Flush) 10 ml FLUSH ASDIRECTED PRN PRN Reason: Keep Vein Open Sodium Chloride (Saline Flush) 2.5 ml FLUSH ASDIRECTED PRN PRN Reason: Keep Vein Open Warfarin Sodium (Coumadin) 7.5 mg PO MoWeFr@1400 [facility] Last Admin: 05/20/18 23:39 Dose: 7.5 mg
--- NOTE | 2018-05-21 11:04 | CONS ---
DATE OF CONSULTATION: DATE OF : 1950 PRIMARY CARE PHYSICIAN: None PCP REASON FOR CONSULTATION: AFib. HISTORY OF PRESENT ILLNESS: This is a 67-year-old female with history of persistent atrial fibrillation status post atrial fibrillation ablation in 2017; thyroid cancer, status post thyroidectomy; history of nonischemic cardiomyopathy. She presented to the hospital at this time due to shortness of breath and palpitation. Around 1 to 2 weeks ago, around the new year time, she started having a palpitation and feeling short of breath. When she came into the hospital, she was found to have an AFib, RVR with a heart rate of 200 with hypotension. She underwent emergent direct current cardioversion. She converted to sinus rhythm, monitored in the ICU and discharged from the hospital. Discharge medications includin. Lasix 40 mg once a day. 2. Lisinopril 5 mg once a day. 3. Metoprolol 125 mg once a day. 4. Spironolactone 12.5 mg once a day. At this time, yesterday when she was doing laundry, all of a sudden, she started having shortness of breath and later on she started feeling palpitation. She feels like she almost passed out and then she decided to come to the emergency room. This symptom lasted for only 1 hour. She started feeling better and when she got into the emergency room, it had resolved. She was found to be sinus rhythm with a heart rate of 68, blood pressure was slightly high, and she was admitted to the hospital for observation. So far, troponin was negative x3. BNP slightly elevated from 131 to 244. EKG shows sinus rhythm and there is no recurrence of atrial fibrillation on the telemetry. Last year in December, she was in [facility] due to decompensated CHF with the ejection fraction of 19% as well as intra-atrial shunt. She also has a CT coronary, which is showing minimal CAD and she was started with medication for heart failure including lisinopril, metoprolol, spironolactone, and she went back to [facility] to have an echocardiogram repeated in March. Ejection fraction was improved to 53% with moderate MR, [id number] TR, and mild LV dilatation. EKG at that time shows sinus rhythm with a heart rate of 52, QRS duration 106, QTc interval is 470, and bundle branch block pattern has disappeared. REVIEW OF SYSTEMS: Except indicated in HPI, otherwise has been negative. PAST MEDICAL HISTORY: Including atrial fibrillation, status post atrial fibrillation ablation and status post emergent direct current cardioversion in May 2018. History of nonischemic cardiomyopathy, normalize ejection fraction to 53%. SOCIAL HISTORY: She denies smoking, drug, or alcohol consumption. FAMILY HISTORY: Noncontributory. PHYSICAL EXAMINATION: CURRENT VITAL SIGNS: 139/64, heart rate of 56, temperature 36.6, O2 saturation is 97, and respiration 18. HEENT: Not pallor. No jaundice. No JVD. HEART: Normal S1, S2. No murmur. Regular rate and rhythm. LUNGS: Clear. No crackles. No wheezing. ABDOMEN: Soft, nontender. Bowel sounds are present. No hepatosplenomegaly. LEGS: No edema. INVESTIGATIONS: Current CBC shows WBC 7, hematocrit of 31, hemoglobin of 11, and platelet is 250. INR is 2.02. Sodium 143, potassium 3.7, chloride 107, bicarb 26, BUN 20, and creatinine 1. Troponin was negative x3. BNP 244. Urinalysis is negative for infection. EKG on May 20, 2018, shows sinus rhythm, heart rate of 57, NM interval 172, QRS duration 107, and QTc interval 460. ASSESSMENT AND PLAN: This is a 67-year-old female with history of persistent atrial fibrillation, status post emergent direct current cardioversion from the last admission; status post atrial fibrillation ablation 2016; history of nonischemic cardiomyopathy, ejection fraction of 19% normalized to 53% back in March 2018. She used to be on the flecainide before, however, due to heart failure, flecainide was discontinued last year. She never been on Rythmol, amiodarone, Multaq, or sotalol before. She is symptomatic for atrial fibrillation. At this time, even though we did not cause any atrial fibrillation, but her symptoms probably contributed from atrial fibrillation episode. Recommended either re- ablation or try another antiarrhythmic drug medication, what I would think probably Tikosyn, but she would need to be admitted to the hospital for at least 72 hours for that. She will go back to [facility] for thyroid followup in June and she will probably make an appointment to see heart rhythm doctor for further management. She has discussed with the heart rhythm doctor regarding re-ablation again, but I gave her the information about Tikosyn, she would decide upon that. Otherwise, she has been ruled out for ACS and she has a CT coronary done last year, which showed minimal CAD. I do not think that she has heart attack right now. Otherwise, continue current medication including heart failure medication. She is not in heart failure on my exam. KATIE PERDUE /[id number] COREY
[2018-05-21 11:47] VITALS: BP 134/58
[2018-05-21] MEDS ORDERED: Metoprolol Succinate 50 MG Tab.ER PO SCH (21:00)
== END 2018-05-21 12:00 | disposition home or self-care (01) ==
LOC: MW.ED 19:34 → MW.MS 21:00 → MW.ED 21:45
PROVIDERS: ADMIT Internal Medicine; ATTEND Internal Medicine
DX: R00.2 Palpitations (principal); R06.02 Shortness of breath; I48.91 Unspecified atrial fibrillation; Z79.01 Long term (current) use of anticoagulants; Z79.899 Other long term (current) drug therapy
CPT/HCPCS: 36415; 71045; 80048; 80053; 81001; 83735; 83880; 84484; 85025; 85610; 93005; 99285; A9270; G0378

== ENCOUNTER 2018-12-01 15:39 | Emergency (ER) | payer MEDICARE, BC ==
--- NOTE | 2018-12-01 17:27 | EDM.PDOC ---
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 Past medical history: As per history of present illness and as reviewed below otherwise noncontributory. Surgical history: As per history of present illness and as reviewed below otherwise noncontributory. Social history: No reported history of drug or alcohol abuse. Family history: As per history of present illness and as reviewed below otherwise noncontributory. Physical exam: HEENT: Atraumatic, normocephalic, pupils reactive, negative for conjunctival pallor or scleral icterus, mucous membranes moist, throat clear, neck supple, nontender, trachea midline. Lungs: Clear to auscultation, breath sounds equal bilaterally, chest nontender. Heart: S1S2, regular, negative for clicks, rubs, or JVD. Abdomen: Soft, nondistended, nontender. Negative for masses or hepatosplenomegaly. Negative for costovertebral tenderness. Pelvis: Stable nontender. Genitourinary: Deferred. Rectal: Deferred. Extremities: Atraumatic, negative for cords or calf pain. Neurovascular unremarkable. Neuro: Awake, alert, oriented. Cranial nerves II through XII unremarkable. Cerebellum unremarkable. Motor and sensory unremarkable throughout. Exam nonfocal. Diagnostics: [Left wrist] Therapeutics: [Splint rest ice ibuprofen Follow-up with orthopedist] Impression: [Overuse syndrome/carpal tunnel syndrome ] Definitive disposition and diagnosis as appropriate pending reevaluation and review of above. - Related Data Allergies Allergy/AdvReac Type Severity Reaction Status Date / Time nitrofurantoin Allergy Hives Verified 12/01/18 16:14 Home Meds: Home Meds Bifidobacterium Infantis [Align] 4 mg PO DAILY 05/07/18 [History] Calcium Carbonate/Vitamin D3 [Calcium 500-Vit D3 200 Tablet] 1 tab PO DAILY@ 1400 05/07/18 [History] Colesevelam [Welchol] 1,250 mg PO BID 05/07/18 [History] Furosemide 20 mg PO DAILY 05/07/18 [History] Levothyroxine 1 tab PO DAILY@0730 05/07/18 [History] Lisinopril 5 mg PO DAILY 05/07/18 [History] Loperamide [Imodium] 1 tab PO QID PRN 05/07/18 [History] Methylcellulose [Citrucel] 1,000 mg PO DAILY 05/07/18 [History] Metoprolol Succinate 50 mg PO BEDTIME 05/07/18 [History] Oxybutynin Chloride [Ditropan Xl] 10 mg PO DAILY 05/07/18 [History] Spironolactone [Aldactone] 12.5 mg PO DAILY 05/07/18 [History] Warfarin [Coumadin] 3.75 mg PO ASDIRECTED 05/07/18 [History] Warfarin [Coumadin] 7.5 mg PO MOWEFR@2100 05/07/18 [History] Amiodarone [Cordarone] 200 mg PO DAILY 12/01/18 [History] cephALEXin [Keflex] 250 mg PO DAILY 12/01/18 [History] Past Medical History - Past Health History Medical/Surgical History: Denies Medical/Surgical History HEENT History: Reports: None Other HEENT History: wears glasses Cardiovascular History: Reports: Afib Respiratory History: Reports: None Gastrointestinal History: Reports: None Other Gastrointestinal History: bladder infection Genitourinary History: Reports: UTI, Recurrent [employer]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: 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 History: Reports: Fracture Neurological History: Reports: None Psychiatric History: Reports: None Endocrine/Metabolic History: Reports: Other (See Below) Other Endocrine/Metabolic History: thyroid cancer current 2019 Hematologic History: Reports: None Immunologic History: Reports: None Oncologic (Cancer) History: Reports: Thyroid Dermatologic History: Reports: None - Infectious Disease History Infectious Disease History: Reports: Chicken Pox, Measles, Mumps - Past Surgical History Head Surgeries/Procedures: Reports: None Female Surgical History: Reports: Hysterectomy, Other (See Below) Endocrine Surgical History: Reports: Thyroidectomy 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 Surgical History: Reports: Other (See Below) Other 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 Surgeries/Procedures:: patellar fracture repair Social & Family History - Family History Family Medical History: Noncontributory - Tobacco Use Smoking Status *Q: Never Smoker - Caffeine Use Caffeine Use: Reports: None Caffeine Use Comment: sometimes a soda - Recreational Drug Use Recreational Drug Use: No Review of Systems - Review of Systems Review Of Systems: See Below ED EXAM, GENERAL - Physical Exam Exam: See Below Course - Vital Signs Last Recorded V/S: Last Vital Signs Temp 97.8 F 12/01/18 16:11 Pulse 56 L 12/01/18 16:11 Resp 16 12/01/18 16:11 BP 137/65 12/01/18 16:11 Pulse Ox 97 12/01/18 16:11 - Orders/Labs/Meds Orders: Active Orders 24 hr Category Date Time Status Wrist Comp Min 3V Lt [CR] Stat Exams 12/01/18 16:59 Taken Departure - Departure Time of Disposition: 17:26 Disposition: Home, Self-Care 01 Condition: Good Clinical Impression: Carpal tunnel syndrome of left wrist - Discharge Information Referrals: PCP,Unknown [Primary Care Provider] - Additional Instructions: Splint Rest ice ibuprofen Follow-up with orthopedist, call phone number below to schedule appropriate follow-up [facility] [address], [address] [place] [address] my orthopedic The following information is given to patients seen in the emergency department who are being discharged to home. This information is to outline your options for follow-up care. We provide all patients seen in our emergency department with a follow-up referral. The need for follow-up, as well as the timing and circumstances, are variable depending upon the specifics of your emergency department visit. If you don't have a primary care physician on staff, we will provide you with a referral. We always advise you to contact your personal physician following an emergency department visit to inform them of the circumstance of the visit and for follow-up with them and/or the need for any referrals to a consulting specialist. The emergency department will also refer you to a specialist when appropriate. This referral assures that you have the opportunity for follow-up care with a specialist. All of these measure are taken in an effort to provide you with optimal care, which includes your follow-up. Under all circumstances we always encourage you to contact your private physician who remains a resource for coordinating your care. When calling for follow-up care, please make the office aware that this follow-up is from your recent emergency room visit. If for any reason you are refused follow-up, please contact the [facility] emergency department at and asked to speak to the emergency department charge nurse. - My Orders Last 24 Hours: My Active Orders 12/01/18 16:59 Wrist Comp Min 3V Lt [CR] Stat - Assessment/Plan Last 24 Hours: My Active Orders 12/01/18 16:59 Wrist Comp Min 3V Lt [CR] Stat
[2018-12-01 17:45] VITALS: BP 125/58; PULSE 50
--- NOTE | 2018-12-01 18:04 | CR ---
INDICATION: Pain in left wrist TECHNIQUE: Wrist radiograph 3 views left COMPARISON: None FINDINGS: Bone: No acute fractures or aggressive bone lesions are identified. Joint: The radiocarpal, carpal, and carpometacarpal joints are unremarkable in appearance. Soft tissue: Unremarkable. No radiopaque foreign bodies are seen. IMPRESSION: 1. No acute osseous injuries or abnormalities are noted. Dictated by: Dilip Bautista MD @ 12/01/2018 18:03:45 (Electronically Signed)
== END 2018-12-01 17:40 | disposition home or self-care (01) ==
LOC: MW.ED 15:39
DX: G56.02 Carpal tunnel syndrome, left upper limb (principal); I48.91 Unspecified atrial fibrillation; Z88.1 Allergy status to other antibiotic agents; Z79.899 Other long term (current) drug therapy; Z79.01 Long term (current) use of anticoagulants
CPT/HCPCS: 73110-26-LT; 73110-LT; 99283; 99283-25

== ENCOUNTER 2019-03-07 17:38 | Emergency (ER) | payer MEDICARE, BC ==
[2019-03-07] MEDS ORDERED: Sodium Chloride 0.9% 10 ML Syringe FLUSH PRN ×2 (17:48→18:12)
[2019-03-07] MEDS ORDERED: Sodium Chloride 0.9% 2.5 ML Syringe FLUSH PRN ×2 (17:48→18:12)
--- NOTE | 2019-03-07 17:51 | EDM.PDOC ---
ED HPI GENERAL MEDICAL PROBLEM - General Chief Complaint: Trauma Stated Complaint: HIT BY A GATE Time Seen by Provider: 03/07/19 17:48 Source of Information: Reports: Patient History Limitations: Reports: No Limitations - History of Present Illness INITIAL COMMENTS - FREE TEXT/NARRATIVE: History of present illness: []Patient was hit by a gate that a cow knocked over. She was unconscious for approximately 5 minutes per EMS. She is on Coumadin for A. fib. Patient arrived by ambulance without C-spine precautions complaining of headache with a laceration on her forehead and a contusion on the bridge of her nose. she denied any neck, extremity, chest, back, hip or abdomenpain Review of systems: As per history of present illness and below otherwise all systems reviewed and negative. Past medical history: As per history of present illness and as reviewed below otherwise noncontributory. Surgical history: As per history of present illness and as reviewed below otherwise noncontributory. Social history: No reported history of drug or alcohol abuse. Family history: As per history of present illness and as reviewed below otherwise noncontributory. Physical exam: General: Well developed, well nourished in NAD HEENT: Laceration left forehead, contusion/abrasion on bridge of nose, pupils reactive, negative for conjunctival pallor or scleral icterus, mucous membranes moist, throat clear, neck supple, nontender, trachea midline., no malocclusion. Lungs: Clear to auscultation, breath sounds equal bilaterally, chest nontender. Heart: S1S2, regular, negative for clicks, rubs, or JVD. Abdomen: NABS, Soft, nondistended, nontender. Negative for masses or hepatosplenomegaly. Negative for costovertebral tenderness. Pelvis: Stable nontender. Genitourinary: Deferred. Rectal: Deferred. Extremities: ecchymosis bilateral biceps, MVI distally negative for cords or calf pain. Neurovascular unremarkable. Neuro: Awake, alert, oriented. Cranial nerves II through XII unremarkable. Cerebellum unremarkable. Motor and sensory unremarkable throughout. Exam nonfocal. Skin:warm and dry Diagnostics: CT head and cervical spine, chest x-ray, CBC, chemistry, INR Therapeutics: Vitamin K 1 mg IV, first frozen plasma 2 units ordered, Ancef 1 gm, tetanus ED Course: Stable, consulted Ro Sauceda accepts patient Impression: Parenchymal hemorrhagic contusions, subarachnoid hemorrhage, blunt head trauma on Coumadin, Prescriptions: None Plan: Transfer to [facility] by air to Dr. Sauceda Definitive disposition and diagnosis as appropriate pending reevaluation and review of above. head Pain Score (Numeric/FACES): 5 - Related Data Allergies Allergy/AdvReac Type Severity Reaction Status Date / Time nitrofurantoin Allergy Hives Verified 03/07/19 17:59 Home Meds: Home Meds Bifidobacterium Infantis [Align] 4 mg PO DAILY 05/07/18 [History] Calcium Carbonate/Vitamin D3 [Calcium 500-Vit D3 200 Tablet] 1 tab PO DAILY@ 1400 05/07/18 [History] Colesevelam [Welchol] 1,250 mg PO BID 05/07/18 [History] Furosemide 20 mg PO DAILY 05/07/18 [History] Levothyroxine 1 tab PO DAILY@0730 05/07/18 [History] Lisinopril 5 mg PO DAILY 05/07/18 [History] Loperamide [Imodium] 1 tab PO QID PRN 05/07/18 [History] Methylcellulose [Citrucel] 1,000 mg PO DAILY 05/07/18 [History] Metoprolol Succinate 50 mg PO BEDTIME 05/07/18 [History] Oxybutynin Chloride [Ditropan Xl] 10 mg PO DAILY 05/07/18 [History] Spironolactone [Aldactone] 12.5 mg PO DAILY 05/07/18 [History] Warfarin [Coumadin] 3.75 mg PO ASDIRECTED 05/07/18 [History] Amiodarone [Cordarone] 200 mg PO DAILY 12/01/18 [History] cephALEXin [Keflex] 250 mg PO DAILY 12/01/18 [History] Past Medical History - Past Health History Medical/Surgical History: Denies Medical/Surgical History HEENT History: Reports: None Other HEENT History: wears glasses Cardiovascular History: Reports: Afib Respiratory History: Reports: None Gastrointestinal History: Reports: None Other Gastrointestinal History: bladder infection Genitourinary History: Reports: UTI, Recurrent 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: Reports: Fracture Neurological History: Reports: None Psychiatric History: Reports: None Endocrine/Metabolic History: Reports: Other (See Below) Other Endocrine/Metabolic History: thyroid cancer current 2019 Hematologic History: Reports: None Immunologic History: Reports: None Oncologic (Cancer) History: Reports: Thyroid Dermatologic History: Reports: None - Infectious Disease History Infectious Disease History: Reports: Chicken Pox, Measles, Mumps - Past Surgical History Head Surgeries/Procedures: Reports: None Female Surgical History: Reports: Hysterectomy, Other (See Below) Endocrine Surgical History: Reports: Thyroidectomy 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 Surgical History: Reports: Other (See Below) Other 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 Surgeries/Procedures:: patellar fracture repair Social & Family History - Family History Family Medical History: Noncontributory - Caffeine Use Caffeine Use: Reports: None Caffeine Use Comment: sometimes a soda Review of Systems - Review of Systems Review Of Systems: See Below ED EXAM, GENERAL - Physical Exam Exam: See Below Course - Vital Signs Last Recorded V/S: Last Vital Signs Temp 97.0 F 03/07/19 17:38 Pulse 69 03/07/19 19:08 Resp 18 03/07/19 19:08 BP 157/70 H 03/07/19 19:08 Pulse Ox 97 03/07/19 19:08 - Orders/Labs/Meds Orders: Active Orders 24 hr Category Date Time Status Vaccines to be Administered [RC] PER UNIT ROUTINE Care 03/07/19 18:12 Active Saline Lock Insert [OM.PC] Stat Oth 03/07/19 17:48 Ordered Saline Lock Insert [OM.PC] Stat Oth 03/07/19 18:11 Ordered Labs: Laboratory Tests 03/07/19 03/07/19 03/07/19 Range/Units 18:04 18:04 18:04 WBC 7.46 (4.0-11.0) K/uL RBC 3.97 L (4.30-5.90) M/uL Hgb 12.7 (12.0-16.0) g/dL Hct 36.6 (36.0-46.0) % MCV 92.2 (80.0-98.0) fL MCH 32.0 (27.0-32.0) pg MCHC 34.7 (31.0-37.0) g/dL RDW Std Deviation 43.3 (28.0-62.0) fl RDW Coeff of Caroline 13 (11.0-15.0) % Plt Count 244 (150-400) K/uL MPV 9.10 (7.40-12.00) fL Neut % (Auto) 74.6 (48.0-80.0) % Lymph % (Auto) 19.0 (16.0-40.0) % Sumner % (Auto) 5.6 (0.0-15.0) % Eos % (Auto) 0.7 (0.0-7.0) % Baso % (Auto) 0.1 (0.0-1.5) % Neut # (Auto) 5.6 (1.4-5.7) K/uL Lymph # (Auto) 1.4 (0.6-2.4) K/uL Sumner # (Auto) 0.4 (0.0-0.8) K/uL Eos # (Auto) 0.1 (0.0-0.7) K/uL Baso # (Auto) 0.0 (0.0-0.1) K/uL Nucleated RBC % 0.0 /100WBC Nucleated RBCs # 0 K/uL INR 2.02 APTT (18.6-31.3) SEC Sodium 139 (136-145) mmol/L Potassium 3.7 (3.5-5.1) mmol/L Chloride 102 (98-107) mmol/L Carbon Dioxide 26.6 (21.0-32.0) mmol/L BUN 24 H (7.0-18.0) mg/dL Creatinine 1.1 H (0.6-1.0) mg/dL Est Cr Clr Drug Dosing 46.28 mL/min Estimated GFR (MDRD) 49.1 ml/min Glucose 107 H (74-106) mg/dL Calcium 8.6 (8.5-10.1) mg/dL Total Bilirubin 1.0 (0.2-1.0) mg/dL AST 22 (15-37) IU/L ALT 29 (14-63) IU/L Alkaline Phosphatase 62 (46-116) U/L Total Protein 7.2 (6.4-8.2) g/dL Albumin 4.0 (3.4-5.0) g/dL Globulin 3.2 (2.6-4.0) g/dL Albumin/Globulin Ratio 1.3 (0.9-1.6) Blood Type 03/07/19 03/07/19 Range/Units 18:04 18:44 WBC (4.0-11.0) K/uL RBC (4.30-5.90) M/uL Hgb (12.0-16.0) g/dL Hct (36.0-46.0) % MCV (80.0-98.0) fL MCH (27.0-32.0) pg MCHC (31.0-37.0) g/dL RDW Std Deviation (28.0-62.0) fl RDW Coeff of Caroline (11.0-15.0) % Plt Count (150-400) K/uL MPV (7.40-12.00) fL Neut % (Auto) (48.0-80.0) % Lymph % (Auto) (16.0-40.0) % Sumner % (Auto) (0.0-15.0) % Eos % (Auto) (0.0-7.0) % Baso % (Auto) (0.0-1.5) % Neut # (Auto) (1.4-5.7) K/uL Lymph # (Auto) (0.6-2.4) K/uL Sumner # (Auto) (0.0-0.8) K/uL Eos # (Auto) (0.0-0.7) K/uL Baso # (Auto) (0.0-0.1) K/uL Nucleated RBC % /100WBC Nucleated RBCs # K/uL INR APTT 36.0 H (18.6-31.3) SEC Sodium (136-145) mmol/L Potassium (3.5-5.1) mmol/L Chloride (98-107) mmol/L Carbon Dioxide (21.0-32.0) mmol/L BUN (7.0-18.0) mg/dL Creatinine (0.6-1.0) mg/dL Est Cr Clr Drug Dosing mL/min Estimated GFR (MDRD) ml/min Glucose (74-106) mg/dL Calcium (8.5-10.1) mg/dL Total Bilirubin (0.2-1.0) mg/dL AST (15-37) IU/L ALT (14-63) IU/L Alkaline Phosphatase (46-116) U/L Total Protein (6.4-8.2) g/dL Albumin (3.4-5.0) g/dL Globulin (2.6-4.0) g/dL Albumin/Globulin Ratio (0.9-1.6) Blood Type O POSITIVE Meds: Medications Discontinued Medications Generic Name Dose Route Start Last Admin Trade Name Freq PRN Reason Stop Dose Admin Diphtheria/Tetanus/Acell Pertussis 0.5 ml 03/07/19 18:11 03/07/19 18:45 Adacel IM 03/07/19 18:12 0.5 ml .ONCE ONE Administration Cefazolin Sodium/Dextrose 1 gm 50 mls @ 100 mls/hr 03/07/19 18:46 03/07/19 18 :51 / Premix IV 03/07/19 19:15 100 mls/hr ONETIME ONE Administration Phytonadione 10 mg/ Sodium 51 mls @ 100 mls/hr 03/07/19 19:01 03/07/19 19:10 Chloride IV 03/07/19 19:31 100 mls/hr NOW ONE Administration Sodium Chloride 10 ml 03/07/19 17:48 03/07/19 19:03 Saline Flush FLUSH 10 ml ASDIRECTED PRN Administration Keep Vein Open Sodium Chloride 2.5 ml 03/07/19 17:48 03/07/19 19:02 Saline Flush FLUSH 2.5 ml ASDIRECTED PRN Administration Keep Vein Open Sodium Chloride 10 ml 03/07/19 18:12 03/07/19 19:03 Saline Flush FLUSH 10 ml ASDIRECTED PRN Administration Keep Vein Open Sodium Chloride 2.5 ml 03/07/19 18:12 03/07/19 19:03 Saline Flush FLUSH 2.5 ml ASDIRECTED PRN Administration Keep Vein Open Departure - Departure Time of Disposition: 19:45 Disposition: Home, Self-Care 01 Condition: Good Clinical Impression: Focal hemorrhagic contusion of cerebrum, Intracranial hemorrhage, spontaneous subarachnoid, associated with coagulopathy, acute - Discharge Information *PRESCRIPTION DRUG MONITORING PROGRAM REVIEWED*: No *COPY OF PRESCRIPTION DRUG MONITORING REPORT IN PATIENT LIZETT: No Referrals: PCP,None [Primary Care Provider] - Forms: ED Department Discharge - My Orders Last 24 Hours: My Active Orders 03/07/19 17:48 Saline Lock Insert [OM.PC] Stat 03/07/19 18:11 Saline Lock Insert [OM.PC] Stat 03/07/19 18:12 Vaccines to be Administered [RC] PER UNIT ROUTINE - Assessment/Plan Last 24 Hours: My Active Orders 03/07/19 17:48 Saline Lock Insert [OM.PC] Stat 03/07/19 18:11 Saline Lock Insert [OM.PC] Stat 03/07/19 18:12 Vaccines to be Administered [RC] PER UNIT ROUTINE
[2019-03-07] MEDS ORDERED: Diphtheria,Pertussis(Acell),Tetanus Vaccine 0.5 ML Syringe IM ONE (18:11)
--- NOTE | 2019-03-07 18:17 | CR ---
INDICATION: Trauma, pt was kicked by cow today. Dyspnea. INDICATION: Trauma. TECHNIQUE: Chest 1 view. COMPARISON: 05/20/2018. FINDINGS: Cardiovascular and mediastinum: Heart size and vasculature are normal in caliber and appearance. Mediastinum is within normal limits. Lungs and pleural space: Lungs are clear. No sign of infiltrate or mass. No sign of pleural effusion. No pneumothorax. Bones and soft tissues: No significant findings. IMPRESSION: 1. There is no acute airspace disease. 2. No pneumothorax/mediastinal widening. Dictated by Maverick Cantrell MD @ 03/07/2019 6:16:01 PM Dictated by: Maverick Cantrell MD @ 03/07/2019 18:16:08 (Electronically Signed)
--- NOTE | 2019-03-07 18:19 | CT ---
INDICATION: Injury, cow pushed on gate, and the gait gate fell on the patient`s head. Patient is anticoagulated COMPARISON: None available. TECHNIQUE: CT examination of the head was performed with 3 mm thick axial sections without intravenous contrast. Images were obtained from the vertex of the skull through the skull base, and I examined the images with the brain and bone windows. Please note that all CT scans at this facility use dose modulation, iterative reconstruction, and/or weight-based dosing when appropriate to reduce radiation dose to as low as reasonably achievable. FINDINGS: : There is mild soft tissue swelling in the left frontal region with a soft tissue hematoma. This extends into the supraorbital region. There is no sign of associated fracture of the skull or left superior orbital rim. There is a slim hematoma located along the inferior and posterior aspect of the left globe, representing a small intraorbital, intraconal hematoma. This does not extend to the optic nerve, and is unlikely to result in compression of the optic nerve. There are multiple rounded high density parenchymal hemorrhage is located at the periphery of the brain, consistent with hemorrhagic contusions. These are in unusual locations for contusions, 1 located in the cortex and subcortical white matter of the left mid-anterior parietal region measuring up to 1.7 centimeters in diameter, another located in the subcortical white matter of the high medial right parietal region measuring up to 1.8 centimeters in diameter. A smaller 1 is located more posteriorly in the high mid parietal region on the right measuring 0.7 centimeters. There is a small amount of subarachnoid hemorrhage located in the sulci of the right high parietal region adjacent to the largest hemorrhagic contusion in this area. Tiny amounts of subarachnoid hemorrhage are seen high in the medial left mid parietal region. There is a tiny high-density region located in the posterior limb of the internal capsule on the right on axial image 36 series 201. This could be an additional area of hemorrhage or could be a dystrophic calcification. There is moderate dilatation of the ventricles and mild dilatation of the sulci representing moderate central atrophy, consistent with patient`s age. There is moderate patchy periventricular hypodensity from age-appropriate small vessel ischemia. The visualized portions of right orbit are normal in appearance. The visualized portions of the paranasal sinuses and mastoids are clear. The osseous structures are normal in their appearance with no sign of abnormality in the skull base or calvarium. The findings of intracranial hemorrhage were discussed with Dr. Forbes at 1810 hours on 03/07/2019. The finding of a left inferior orbital hematoma was not discussed with Dr. Forbes. IMPRESSION: Multiple acute intraparenchymal hemorrhages located at the surface of the brain consistent with multiple hemorrhagic contusions. The largest is located in the left mid-anterior parietal region, with 2 located in the medial high right mid parietal region. Small amounts of subarachnoid hemorrhage, located in the sulci of the central convexity, right greater than left. Possible tiny punctate hemorrhage in the posterior limb of the internal capsule on the right. Left frontal subcutaneous hematoma extending into the supraorbital region. No sign of underlying skull fracture. Small hematoma located along the inferior and posterior aspect of the left globe, without involvement of the area of the optic nerve. Please note that all CT scans at this facility use dose modulation, iterative reconstruction, and/or weight-based dosing when appropriate to reduce radiation dose to as low as reasonably achievable. Dictated by Yuri Andrade MD @ Mar 07 2019 6:02PM Signed by Dr. Yuri Andrade @ Mar 07 2019 6:18PM
--- NOTE | 2019-03-07 18:23 | CT ---
INDICATION: Struck on the top of the head by a gait which was pushed over by a cow. The patient is anticoagulated. COMPARISON: None available TECHNIQUE: CT examination of the cervical spine is performed without contrast using spiral technique. 2 mm thick axial, sagittal and coronal reconstructions were made. Please note that all CT scans at this facility use dose modulation, iterative reconstruction, and/or weight-based dosing when appropriate to reduce radiation dose to as low as reasonably achievable. FINDINGS: : There is moderate C5-6 disc degenerative disease with minimal posterior subluxation of C5 on C6. The subluxation is probably chronic. There is mild bilateral neural foraminal narrowing at this level from uncovertebral joint hypertrophy. There is no sign of additional subluxation elsewhere in the cervical spine. The cervical vertebral bodies are normal in height. There is mild C4-5 disc degenerative disease. The rest of the intervertebral discs are normal in height. There is no sign of prevertebral soft tissue swelling. The airway structures are normal in appearance. The visualized skull base is normal in appearance. Brain detail is extremely limited by the use of bone technique, but no gross abnormality is seen. The apices of the lungs are clear. IMPRESSION: No sign of acute injury to the cervical spine. Minimal posterior subluxation of C5 on C6 which appears to be degenerative, associated with moderate C5-6 disc degenerative disease. Mild C4-5 disc degenerative disease. Please note that all CT scans at this facility use dose modulation, iterative reconstruction, and/or weight-based dosing when appropriate to reduce radiation dose to as low as reasonably achievable. Dictated by Yuri Andrade MD @ Mar 07 2019 6:18PM Signed by Dr. Yuri Andrade @ Mar 07 2019 6:21PM
[2019-03-07 18:31] LABS: CARBON DIOXIDE,CO2 26.6 mmol/L (21.0-32.0); POTASSIUM,K 3.7 mmol/L (3.5-5.1)
[2019-03-07] MEDS ORDERED: Phytonadione 1 MG in Sodium Chloride 0.9% 50 ML IV ONE (18:32)
[2019-03-07] MEDS ORDERED: ceFAZolin 1 GM in Premix Bag 1 BAG IV ONE (18:46)
[2019-03-07] MEDS ORDERED: Phytonadione 10 MG in Sodium Chloride 0.9% 50 ML IV ONE (19:01)
[2019-03-07 20:14] VITALS: BP 157/70; PULSE 69
== END 2019-03-07 19:27 | disposition home or self-care (01) ==
LOC: MW.ED 17:38
DX: S06.6X1A Traumatic subarachnoid hemorrhage with loss of consciousness of 30 minutes or less, initial encounter (principal); I48.91 Unspecified atrial fibrillation; Z79.01 Long term (current) use of anticoagulants; Z88.1 Allergy status to other antibiotic agents; Z79.899 Other long term (current) drug therapy; W20.8XXA Other cause of strike by thrown, projected or falling object, initial encounter
CPT/HCPCS: 36415; 36430; 70450; 71045; 72125; 80053; 85025; 85610; 85730; 86900; 86901; 90471; 90715; 93005; 96374; 96375; 99284; J0690; J3430; J7050; P9017; 99285

== ENCOUNTER 2019-04-07 14:58 | Observation (INO) | payer MEDICARE, BC ==
[2019-04-07] MEDS ORDERED: Sodium Chloride 0.9% 10 ML Syringe FLUSH PRN (15:14)
[2019-04-07] MEDS ORDERED: Sodium Chloride 0.9% 2.5 ML Syringe FLUSH PRN (15:14)
--- NOTE | 2019-04-07 15:53 | EDM.PDOC ---
ED HPI GENERAL MEDICAL PROBLEM - General Chief Complaint: General Stated Complaint: CT SCAN Time Seen by Provider: 04/07/19 15:01 Source of Information: Reports: Patient, Family History Limitations: Reports: No Limitations - History of Present Illness INITIAL COMMENTS - FREE TEXT/NARRATIVE: HISTORY AND PHYSICAL: History of present illness: Patient is a 68-year-old female who presents to the ED today with her and sister for concern of tiredness and dizziness that has worsened today. Approximately 3-3-1/2 weeks ago the sister states patient was flown to [place] for a brain bleed. Sister states that patient was in rehabilitation in [place] and was just discharged from the hospital one week ago after rehabilitation. Patient states that generally she has been feeling good until this morning she feels more tired and run down. Patient states she also feels weak and dizzy. Patient denies any new falls or new injuries. Patient insists deny any other symptoms or concerns. Patient denies fever, chills, chest pain, shortness of breath, or cough. Denies headache, neck stiff ness, change in vision, syncope, or near syncope. Denies nausea, vomiting, abdominal pain, diarrhea, constipation, or dysuria. Has not noted any blood in urine or stool. Patient has been eating and drinking appropriately. Review of systems: As per history of present illness and below otherwise all systems reviewed and negative. Past medical history: As per history of present illness and as reviewed below otherwise noncontributory. Surgical history: As per history of present illness and as reviewed below otherwise noncontributory. Social history: See social history for further information Family history: As per history of present illness and as reviewed below otherwise noncontributory. Physical exam: General: Patient is alert, oriented, and in no acute distress. Patient laying comfortably on exam table and tired appearing. HEENT: Atraumatic, normocephalic, pupils equal and reactive bilaterally, negative for conjunctival pallor or scleral icterus, mucous membranes dry, TMs normal bilaterally, throat clear, neck supple, nontender, trachea midline. No drooling or trismus noted. No meningeal signs. No hot potato voice noted. Lungs: Clear to auscultation, breath sounds equal bilaterally, chest nontender. Heart: S1S2, regular rate and rhythm without overt murmur Abdomen: Soft, nondistended, nontender. Negative for masses or hepatosplenomegaly. Negative for costovertebral tenderness. Pelvis: Stable nontender. Genitourinary: Deferred. Rectal: Deferred. Skin: Intact, warm, dry. No lesions or rashes noted. Extremities: Atraumatic, negative for cords or calf pain. Neurovascular unremarkable. Neuro: Awake, alert, oriented. Cranial nerves II through XII unremarkable. Cerebellum unremarkable. Motor and sensory unremarkable throughout. Exam nonfocal. Notes: Dr. Palmer was consulted on patient and will admit to observation on telemetry. Voices understanding and is agreeable to plan of care. Denies any further questions or concerns at this time. Diagnostics: Head CT, CBC, CMP, UA, EKG, chest x-ray, troponin, lipase Therapeutics: saline Impression: Generalized Weakness Dehydration Plan: Admit to observation to Dr. Palmer with telemetry Definitive disposition and diagnosis as appropriate pending reevaluation and review of above. - Related Data Allergies Allergy/AdvReac Type Severity Reaction Status Date / Time diltiazem Allergy Other Verified 04/07/19 15:08 nitrofurantoin Allergy Hives Verified 04/07/19 15:07 Home Meds: Home Meds Bifidobacterium Infantis [Align] 4 mg PO DAILY 05/07/18 [History] Colesevelam [Welchol] 625 mg PO DAILY 05/07/18 [History] Furosemide 40 mg PO DAILY 05/07/18 [History] Levothyroxine 1 tab PO DAILY@0730 05/07/18 [History] Lisinopril 5 mg PO DAILY 05/07/18 [History] Metoprolol Succinate 25 mg PO DAILY 05/07/18 [History] Oxybutynin Chloride [Ditropan Xl] 10 mg PO DAILY 05/07/18 [History] Spironolactone [Aldactone] 12.5 mg PO DAILY 05/07/18 [History] Warfarin [Coumadin] 3.75 mg PO ASDIRECTED 05/07/18 [History] Amiodarone [Cordarone] 200 mg PO DAILY 12/01/18 [History] cephALEXin [Keflex] 250 mg PO DAILY 12/01/18 [History] Amantadine [Symmetrel] 100 mg PO BID 04/07/19 [History] Calcium Citrate 500 mg PO DAILY 04/07/19 [History] Melatonin 9 mg PO BEDTIME 04/07/19 [History] Potassium Chloride 10 meq PO BID 04/07/19 [History] hydrOXYzine HCl [Atarax] 25 mg PO BEDTIME 04/07/19 [History] levETIRAcetam [Keppra] 500 mg PO BID 04/07/19 [History] traZODone HCl [Trazodone HCl] 25 mg PO BEDTIME 04/07/19 [History] Past Medical History - Past Health History Medical/Surgical History: Denies Medical/Surgical History HEENT History: Reports: None Other HEENT History: wears glasses Cardiovascular History: Reports: Afib Respiratory History: Reports: None Gastrointestinal History: Reports: None Other Gastrointestinal History: bladder infection Genitourinary History: Reports: UTI, Recurrent 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: 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 History: Reports: Fracture Neurological History: Reports: Brain Injury, Head Trauma Psychiatric History: Reports: None Endocrine/Metabolic History: Reports: Other (See Below) Other Endocrine/Metabolic History: thyroid cancer current 2018 Hematologic History: Reports: None Immunologic History: Reports: None Oncologic (Cancer) History: Reports: Thyroid Dermatologic History: Reports: None - Infectious Disease History Infectious Disease History: Reports: Chicken Pox, Measles, Mumps - Past Surgical History Head Surgeries/Procedures: Reports: None HEENT Surgical History: Reports: None Cardiovascular Surgical History: Reports: None Respiratory Surgical History: Reports: None GI Surgical History: Reports: None Female Surgical History: Reports: Hysterectomy, Other (See Below) Endocrine Surgical History: Reports: Thyroidectomy Neurological Surgical History: Reports: None 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 Surgical History: Reports: Other (See Below) Other 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 Surgeries/Procedures:: patellar fracture repair Dermatological Surgical History: Reports: None Social & Family History - Family History Family Medical History: Noncontributory - Tobacco Use Smoking Status *Q: Never Smoker Second Hand Smoke Exposure: No - Caffeine Use Caffeine Use: Reports: None Caffeine Use Comment: sometimes a soda - Recreational Drug Use Recreational Drug Use: No ED ROS GENERAL - Review of Systems Review Of Systems: Comprehensive ROS is negative, except as noted in HPI. ED EXAM, GENERAL - Physical Exam Exam: See Below (see dictation) Course - Vital Signs Last Recorded V/S: Last Vital Signs Temp 98.7 F 04/07/19 15:08 Pulse 66 04/07/19 15:51 Resp 16 04/07/19 15:51 BP 102/64 04/07/19 15:51 Pulse Ox 96 04/07/19 15:51 - Orders/Labs/Meds Orders: Active Orders 24 hr Category Date Time Status EKG Documentation Completion [RC] STAT Care 04/07/19 15:15 Active UA RFX MAUDE AND CULT IF INDIC [URIN] Stat Lab 04/07/19 15:14 Ordered Sodium Chloride 0.9% [Normal Saline] 1,000 ml Med 04/07/19 16:33 Active IV STAT Sodium Chloride 0.9% [Saline Flush] Med 04/07/19 15:14 Active 10 ml FLUSH ASDIRECTED PRN Sodium Chloride 0.9% [Saline Flush] Med 04/07/19 15:14 Active 2.5 ml FLUSH ASDIRECTED PRN Saline Lock Insert [OM.PC] Stat Oth 04/07/19 15:14 Ordered Medication Orders Sodium Chloride (Normal Saline) 1,000 mls @ 999 mls/hr IV STAT ONE Stop: 04/07/19 17:33 Last Admin: 04/07/19 17:09 Dose: 999 mls/hr Sodium Chloride (Saline Flush) 10 ml FLUSH ASDIRECTED PRN PRN Reason: Keep Vein Open Sodium Chloride (Saline Flush) 2.5 ml FLUSH ASDIRECTED PRN PRN Reason: Keep Vein Open Labs: Laboratory Tests 04/07/19 04/07/19 04/07/19 Range/Units 15:07 15:07 15:07 WBC 6.69 (4.0-11.0) K/uL RBC 4.14 L (4.30-5.90) M/uL Hgb 13.3 (12.0-16.0) g/dL Hct 37.8 (36.0-46.0) % MCV 91.3 (80.0-98.0) fL MCH 32.1 H (27.0-32.0) pg MCHC 35.2 (31.0-37.0) g/dL RDW Std Deviation 42.5 (28.0-62.0) fl RDW Coeff of Caroline 13 (11.0-15.0) % Plt Count 200 (150-400) K/uL MPV 9.20 (7.40-12.00) fL Neut % (Auto) 78.7 (48.0-80.0) % Lymph % (Auto) 9.7 L (16.0-40.0) % [place] % (Auto) 6.7 (0.0-15.0) % Eos % (Auto) 4.3 (0.0-7.0) % Baso % (Auto) 0.6 (0.0-1.5) % Neut # (Auto) 5.3 (1.4-5.7) K/uL Lymph # (Auto) 0.7 (0.6-2.4) K/uL [place] # (Auto) 0.5 (0.0-0.8) K/uL Eos # (Auto) 0.3 (0.0-0.7) K/uL Baso # (Auto) 0.0 (0.0-0.1) K/uL Nucleated RBC % 0.0 /100WBC Nucleated RBCs # 0 K/uL INR 1.04 Sodium 136 (136-145) mmol/L Potassium 3.6 (3.5-5.1) mmol/L Chloride 100 (98-107) mmol/L Carbon Dioxide 24.3 (21.0-32.0) mmol/L BUN 17 (7.0-18.0) mg/dL Creatinine 1.3 H (0.6-1.0) mg/dL Est Cr Clr Drug Dosing 39.16 mL/min Estimated GFR (MDRD) 40.5 ml/min Glucose 108 H (74-106) mg/dL Calcium 8.7 (8.5-10.1) mg/dL Total Bilirubin 0.8 (0.2-1.0) mg/dL AST 55 H (15-37) IU/L ALT 89 H (14-63) IU/L Alkaline Phosphatase 141 H (46-116) U/L Troponin I < 0.050 (0.000-0.056) ng/mL Total Protein 7.9 (6.4-8.2) g/dL Albumin 3.7 (3.4-5.0) g/dL Globulin 4.2 H (2.6-4.0) g/dL Albumin/Globulin Ratio 0.9 (0.9-1.6) Lipase 53 L (73-393) U/L Meds: Medications Generic Name Dose Route Start Last Admin Trade Name Freq PRN Reason Stop Dose Admin Sodium Chloride 1,000 mls @ 999 mls/hr 04/07/19 16:33 04/07/19 17:09 Normal Saline IV 04/07/19 17:33 999 mls/hr STAT ONE Administration Sodium Chloride 10 ml 04/07/19 15:14 Saline Flush FLUSH ASDIRECTED PRN Keep Vein Open Sodium Chloride 2.5 ml 04/07/19 15:14 Saline Flush FLUSH ASDIRECTED PRN Keep Vein Open Departure - Departure Time of Disposition: 17:16 Disposition: Refer to Observation Clinical Impression: Generalized weakness, Dehydration - Discharge Information Referrals: Jos Smith MD [Primary Care Provider] - Forms: ED Department Discharge - My Orders Last 24 Hours: My Active Orders 04/07/19 15:14 UA RFX MAUDE AND CULT IF INDIC [URIN] Stat Sodium Chloride 0.9% [Saline Flush] 10 ml FLUSH ASDIRECTED PRN Sodium Chloride 0.9% [Saline Flush] 2.5 ml FLUSH ASDIRECTED PRN Saline Lock Insert [OM.PC] Stat 04/07/19 15:15 EKG Documentation Completion [RC] STAT 04/07/19 16:33 Sodium Chloride 0.9% [Normal Saline] 1,000 ml IV STAT - Assessment/Plan Last 24 Hours: My Active Orders 04/07/19 15:14 UA RFX MAUDE AND CULT IF INDIC [URIN] Stat Sodium Chloride 0.9% [Saline Flush] 10 ml FLUSH ASDIRECTED PRN Sodium Chloride 0.9% [Saline Flush] 2.5 ml FLUSH ASDIRECTED PRN Saline Lock Insert [OM.PC] Stat 04/07/19 15:15 EKG Documentation Completion [RC] STAT 04/07/19 16:33 Sodium Chloride 0.9% [Normal Saline] 1,000 ml IV STAT
[2019-04-07 16:01] LABS: BLOOD UREA NITROGEN,BUN 17 mg/dL (7.0-18.0); CARBON DIOXIDE,CO2 24.3 mmol/L (21.0-32.0); CHLORIDE,CL 100 mmol/L (98-107); GLUCOSE RANDOM 108 mg/dL (74-106); LIPASE 53 U/L (73-393); POTASSIUM,K 3.6 mmol/L (3.5-5.1); SODIUM,NA 136 mmol/L (136-145)
--- NOTE | 2019-04-07 16:13 | CR ---
EXAM DATE: 04/07/19 PATIENT'S AGE: 68 Chest: AP view of the chest was obtained. Comparison: Prior chest x-ray of 03/07/19. Findings: Heart size and mediastinum are normal. Slight linear scarring is seen within the left base. Lungs show no acute parenchymal change. Bony structures are grossly intact. Impression: 1. Nothing acute is appreciated on AP chest x-ray. Diagnostic code #2 This report was dictated in [place] Standard Time Report Signed by Proxy. COREY
[2019-04-07] MEDS ORDERED: Sodium Chloride 0.9% 1,000 ML IV ONE (16:33)
--- NOTE | 2019-04-07 16:40 | CT ---
INDICATION: Pain. Patient states increased weakness. Had brain bleed 3-4 weeks ago. COMPARISON: CT head 03/07/2019. TECHNIQUE: CT of the head without IV contrast. Coronal and sagittal reconstructions are provided. FINDINGS: Previously seen acute intracranial hemorrhages have resolved. No new intracranial hemorrhage. No mass effect, midline shift, or evidence of acute infarct. No abnormal extra-axial fluid collections. Advanced chronic small vessel ischemic disease. Mild ex vacuo dilation of the lateral ventricles. Probable arachnoid cyst in the right occipital region (series 201, image 23), unchanged. Intracranial vascular calcifications. Orbits and extraocular muscles are symmetric. Paranasal sinuses and mastoid air cells are clear. No acute fracture. Residual area of mild skin thickening overlying the left frontal bone. IMPRESSION: : 1. No acute intracranial findings. 2. Previously seen acute intracranial hemorrhages have resolved. 3. Mild residual skin thickening overlying the left frontal bone. Please note that all CT scans at this facility use dose modulation, iterative reconstruction, and/or weight-based dosing when appropriate to reduce radiation dose to as low as reasonably achievable. Dictated by Regina Bond MD @ Apr 07 2019 4:27PM Signed by Dr. Regina Bond @ Apr 07 2019 4:39PM
[2019-04-07] MEDS ORDERED: Ondansetron 4 MG Tab.DIS PO PRN (17:59)
[2019-04-07] MEDS ORDERED: Acetaminophen 325 MG Tab PO PRN (17:59)
[2019-04-07] MEDS ORDERED: Ondansetron 4 MG/2 ML SDV IVPUSH PRN (17:59)
[2019-04-07] MEDS ORDERED: Sodium Chloride 0.9% 1,000 ML IV SCH (18:15)
--- NOTE | 2019-04-07 18:27 | PCM.HP.2 ---
H&P History of Present Illness - General Date of Service: 04/07/19 Admit Problem/Dx: Admission Diagnosis/Problem Admission Diagnosis/Problem Weakness Source of Information: Patient, Family History Limitations: Reports: No Limitations - History of Present Illness Initial Comments - Free Text/Narative: 68-year-old female presented to ER complaining of feeling tired and weak. She has a PMH of atrial fibrillation, hypertension, thyroid CA s/p thyroidectomy and seizures. She also suffered an acute intracranial bleed approximately 3-4 weeks ago. She received treatment in [place], [place] for it and was then transitioned to inpatient rehab. Patient returned from inpatient rehab approximately 1 week ago. She reports that she had been doing well but feeling weak on and off over the past few days. She reports that she felt a lot weaker today all of a sudden so decided to come to the ER for further evaluation. Patient reports that she has had decreased appetite lately. She denies any fevers, chills, shortness of breath, chest pain, nausea, vomiting, diarrhea, blood in stool, pain on urination, blood in urine, numbness or tingling in extremities. In the ER, CMP showed RAHEEL and mildly elevated liver enzymes. Troponin was negative. CXR negative. CT head negative. Urinalysis is pending. Patient admitted for further evaluation. - Related Data Allergies/Adverse Reactions: Allergies Allergy/AdvReac Type Severity Reaction Status Date / Time diltiazem Allergy Other Verified 04/07/19 15:08 nitrofurantoin Allergy Hives Verified 04/07/19 15:07 Home Medications: Home Meds Bifidobacterium Infantis [Align] 4 mg PO DAILY 05/07/18 [History] Colesevelam [Welchol] 625 mg PO DAILY 05/07/18 [History] Furosemide 40 mg PO DAILY 05/07/18 [History] Levothyroxine 1 tab PO DAILY@0730 05/07/18 [History] Lisinopril 5 mg PO DAILY 05/07/18 [History] Metoprolol Succinate 25 mg PO DAILY 05/07/18 [History] Oxybutynin Chloride [Ditropan Xl] 10 mg PO DAILY 05/07/18 [History] Spironolactone [Aldactone] 12.5 mg PO DAILY 05/07/18 [History] Warfarin [Coumadin] 3.75 mg PO ASDIRECTED 05/07/18 [History] Amiodarone [Cordarone] 200 mg PO DAILY 12/01/18 [History] cephALEXin [Keflex] 250 mg PO DAILY 12/01/18 [History] Amantadine [Symmetrel] 100 mg PO BID 04/07/19 [History] Calcium Citrate 500 mg PO DAILY 04/07/19 [History] Melatonin 9 mg PO BEDTIME 04/07/19 [History] Potassium Chloride 10 meq PO BID 04/07/19 [History] hydrOXYzine HCl [Atarax] 25 mg PO BEDTIME 04/07/19 [History] levETIRAcetam [Keppra] 500 mg PO BID 04/07/19 [History] traZODone HCl [Trazodone HCl] 25 mg PO BEDTIME 04/07/19 [History] Past Medical History - Past Health History Medical/Surgical History: Denies Medical/Surgical History HEENT History: Reports: None Other HEENT History: wears glasses Cardiovascular History: Reports: Afib Respiratory History: Reports: None Gastrointestinal History: Reports: None Other Gastrointestinal History: bladder infection Genitourinary History: Reports: UTI, Recurrent 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: 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 History: Reports: Fracture Neurological History: Reports: Brain Injury, Head Trauma Psychiatric History: Reports: None Endocrine/Metabolic History: Reports: Other (See Below) Other Endocrine/Metabolic History: thyroid cancer current 2019 Hematologic History: Reports: None Immunologic History: Reports: None Oncologic (Cancer) History: Reports: Thyroid Dermatologic History: Reports: None - Infectious Disease History Infectious Disease History: Reports: Chicken Pox, Measles, Mumps - Past Surgical History Head Surgeries/Procedures: Reports: None HEENT Surgical History: Reports: None Cardiovascular Surgical History: Reports: None Respiratory Surgical History: Reports: None GI Surgical History: Reports: None Female Surgical History: Reports: Hysterectomy, Other (See Below) Endocrine Surgical History: Reports: Thyroidectomy Neurological Surgical History: Reports: None 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 Surgical History: Reports: Other (See Below) Other 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 Surgeries/Procedures:: patellar fracture repair Dermatological Surgical History: Reports: None Social & Family History - Family History Family Medical History: Noncontributory - Tobacco Use Smoking Status *Q: Never Smoker Second Hand Smoke Exposure: No - Caffeine Use Caffeine Use: Reports: None Caffeine Use Comment: sometimes a soda - Recreational Drug Use Recreational Drug Use: No H&P Review of Systems - Review of Systems: Review Of Systems: Comprehensive ROS is negative, except as noted in HPI. Exam - Exam Exam: See Below - Vital Signs Vital Signs: Last Vital Signs Temp 98.7 F 04/07/19 15:08 Pulse 61 04/07/19 17:38 Resp 16 04/07/19 17:38 BP 109/55 L 04/07/19 17:38 Pulse Ox 98 04/07/19 17:38 Weight: 145 lb - Exam General: Alert, Oriented, Cooperative, Other (NAD) HEENT: Conjunctiva Clear, EOMI, Hearing Intact, Posterior Pharynx Clear, Pupils Equal, Pupils Reactive Neck: Supple, Trachea Midline Lungs: Clear to Auscultation, Normal Respiratory Effort Cardiovascular: Regular Rate, Regular Rhythm GI/Abdominal Exam: Normal Bowel Sounds, Soft, Non-Tender, No Distention Extremities: Normal Inspection, No Pedal Edema Peripheral Pulses: 1+: Posterior Tibial (L), Posterior Tibial (R) Skin: Warm, Dry, Intact Neurological: Cranial Nerves Intact, Strength Equal Bilateral, Normal Tone, Sensation Intact Neuro Extensive - Mental Status: Alert, Oriented x3, Normal Mood/Affect - Patient Data Lab Results Last 24 hrs: Laboratory Results - last 24 hr 04/07/19 04/07/19 04/07/19 Range/Units 15:07 15:07 15:07 WBC 6.69 (4.0-11.0) K/uL RBC 4.14 L (4.30-5.90) M/uL Hgb 13.3 (12.0-16.0) g/dL Hct 37.8 (36.0-46.0) % MCV 91.3 (80.0-98.0) fL MCH 32.1 H (27.0-32.0) pg MCHC 35.2 (31.0-37.0) g/dL RDW Std Deviation 42.5 (28.0-62.0) fl RDW Coeff of Caroline 13 (11.0-15.0) % Plt Count 200 (150-400) K/uL MPV 9.20 (7.40-12.00) fL Neut % (Auto) 78.7 (48.0-80.0) % Lymph % (Auto) 9.7 L (16.0-40.0) % [place] % (Auto) 6.7 (0.0-15.0) % Eos % (Auto) 4.3 (0.0-7.0) % Baso % (Auto) 0.6 (0.0-1.5) % Neut # (Auto) 5.3 (1.4-5.7) K/uL Lymph # (Auto) 0.7 (0.6-2.4) K/uL [place] # (Auto) 0.5 (0.0-0.8) K/uL Eos # (Auto) 0.3 (0.0-0.7) K/uL Baso # (Auto) 0.0 (0.0-0.1) K/uL Nucleated RBC % 0.0 /100WBC Nucleated RBCs # 0 K/uL INR 1.04 Sodium 136 (136-145) mmol/L Potassium 3.6 (3.5-5.1) mmol/L Chloride 100 (98-107) mmol/L Carbon Dioxide 24.3 (21.0-32.0) mmol/L BUN 17 (7.0-18.0) mg/dL Creatinine 1.3 H (0.6-1.0) mg/dL Est Cr Clr Drug Dosing 39.16 mL/min Estimated GFR (MDRD) 40.5 ml/min Glucose 108 H (74-106) mg/dL Calcium 8.7 (8.5-10.1) mg/dL Total Bilirubin 0.8 (0.2-1.0) mg/dL AST 55 H (15-37) IU/L ALT 89 H (14-63) IU/L Alkaline Phosphatase 141 H (46-116) U/L Troponin I < 0.050 (0.000-0.056) ng/mL Total Protein 7.9 (6.4-8.2) g/dL Albumin 3.7 (3.4-5.0) g/dL Globulin 4.2 H (2.6-4.0) g/dL Albumin/Globulin Ratio 0.9 (0.9-1.6) Lipase 53 L (73-393) U/L Result Diagrams: 04/07/19 15:07 04/07/19 15:07 Problem List Initiated/Reviewed/Updated: Yes Orders Last 24hrs: Active Orders 24 hr Category Date Time Status Admission Status [Patient Status] [ADT] Stat ADT 04/07/19 17:16 Active Antiembolic Devices [RC] PER UNIT ROUTINE Care 04/07/19 18:00 Active Oxygen Therapy [RC] PRN Care 04/07/19 17:59 Active Up With Assistance [RC] ASDIRECTED Care 04/07/19 17:59 Active VTE/DVT Education [RC] PER UNIT ROUTINE Care 04/07/19 17:59 Active Vital Signs [RC] Q4H Care 04/07/19 17:59 Active Consult to Physical Therapy [PT Evaluation and Cons 04/07/19 18:03 Active Treatment] [CONS] Routine Heart Healthy Diet [DIET] Diet 04/07/19 Dinner Active UA RFX MAUDE AND CULT IF INDIC [URIN] Stat Lab 04/07/19 15:14 Ordered Acetaminophen [Tylenol] Med 04/07/19 17:59 Ordered 650 mg PO Q4H PRN Ondansetron [Zofran ODT] Med 04/07/19 17:59 Ordered 4 mg PO Q4H PRN Ondansetron [Zofran] Med 04/07/19 17:59 Ordered 4 mg IVPUSH Q4H PRN Sodium Chloride 0.9% [Normal Saline] 1,000 ml Med 04/07/19 18:15 Ordered IV STAT Sodium Chloride 0.9% [Saline Flush] Med 04/07/19 15:14 Active 10 ml FLUSH ASDIRECTED PRN Sodium Chloride 0.9% [Saline Flush] Med 04/07/19 15:14 Active 2.5 ml FLUSH ASDIRECTED PRN Saline Lock Insert [OM.PC] Stat Oth 04/07/19 15:14 Ordered Sequential Compression Device [OM.PC] Per Unit Routine Oth 04/07/19 18:00 Ordered Resuscitation Status Routine Resus Stat 04/07/19 17:59 Ordered Medication Orders Acetaminophen (Tylenol) 650 mg PO Q4H PRN PRN Reason: Pain (Mild 1-3)/fever Sodium Chloride (Normal Saline) 1,000 mls @ 75 mls/hr IV STAT MACHO Ondansetron HCl (Zofran Odt) 4 mg PO Q4H PRN PRN Reason: nausea, able to take PO Ondansetron HCl (Zofran) 4 mg IVPUSH Q4H PRN PRN Reason: Nausea Sodium Chloride (Saline Flush) 10 ml FLUSH ASDIRECTED PRN PRN Reason: Keep Vein Open Sodium Chloride (Saline Flush) 2.5 ml FLUSH ASDIRECTED PRN PRN Reason: Keep Vein Open Assessment/Plan Comment:: Assessment: 1. Generalized weakness and fatigue. 2. RAHEEL secondary to dehydration. 3. Transaminitis. 4. History of atrial fibrillation, warfarin held. 5. Past medical history of intracranial hemorrhage, HTN, thyroid CA s/p thyroidectomy and seizures. Plan: 1. For generalized weakness, will order physical therapy. Urinalysis is pending. CT head negative. 2. For RAHEEL, will start IV NS 75 cc/hr. Patient received 1L NS bolus in the ER. 3. For transaminitis, will recheck with AM labs. 4. For history of a-fib, currently rate and rhythm controlled. Will keep patient on telemetry. Warfarin has been held after intracranial hemorrhage and has not been resumed yet by PCP. 5. VTE prophylaxis: SCD's due to history of recent intracranial bleed.
[2019-04-07] MEDS: levETIRAcetam 500 MG Tab PO SCH (21:27)
[2019-04-07] MEDS: Amantadine 100 MG Cap PO SCH (22:51)
[2019-04-08 06:28] LABS: CARBON DIOXIDE,CO2 21.1 mmol/L (21.0-32.0)
[2019-04-08] MEDS ORDERED: Levothyroxine 112 MCG Tab PO SCH (07:30)
[2019-04-08] MEDS ORDERED: Spironolactone 25 MG Tab PO SCH (09:00)
[2019-04-08] MEDS ORDERED: Colesevelam 625 MG Tab PO SCH (09:00)
[2019-04-08] MEDS ORDERED: Metoprolol Succinate 25 MG Tab.ER PO SCH ×2 (09:00→21:00)
[2019-04-08] MEDS ORDERED: Oxybutynin 5 MG Tab PO SCH (09:00)
[2019-04-08] MEDS ORDERED: Metoprolol Succinate 50 MG Tab.ER PO SCH (09:00)
[2019-04-08] MEDS ORDERED: Amiodarone 200 MG Tab PO SCH (09:00)
[2019-04-08] MEDS: levETIRAcetam 500 MG Tab PO SCH (09:10)
[2019-04-08] MEDS: Amantadine 100 MG Cap PO SCH (09:58)
--- NOTE | 2019-04-08 11:20 | PCM.DCSUM1 ---
<Krzysztof Godoy - Last Filed: 04/08/19 15:57> Discharge Summary - Hospital Course Free Text/Narrative:: 68-year-old female admitted for generalized weakness and fatigue secondary to dehydration. She has a PMH of atrial fibrillation, thyroid CA s/p thyroidectomy , HTN and seizures. She does have a history of acute intracranial bleed approximately 3 weeks ago and was in inpatient rehab. She returned for inpatient rehab approximately 1 week ago. Patient reports that she had been doing well since being home with occasional weakness and fatigue which got acutely worse on the day of hospitalization. CBC unremarkable. CMP showed RAHEEL. CT head negative. CXR negative. Troponin was negative. UA showed moderate blood , esterase positive and 1+ bacteria. Patient was hydrated with IV fluids. The following morning, patient reported feeling much better was discharged home in stable condition. Her melatonin and trazodone at bedtime were discontinued. She was also discharged on a course of Bactrim DS BID x 3 days for her UTI. - Discharge Data Discharge Date: 04/08/19 Discharge Disposition: Home, Self-Care 01 Condition: Good - Referral to Home Health Primary Care Physician: Jos Smith MD - Patient Summary/Data Consults: Consultations 04/07/19 18:03 Consult to Physical Therapy [PT Evaluation and Treatment] [CONS] Routine - Patient Instructions Diet: Heart Healthy Diet Activity: As Tolerated Notify Provider of: Fever, Increased Pain, Swelling and Redness, Drainage, Nausea and/or Vomiting - Discharge Plan *PRESCRIPTION DRUG MONITORING PROGRAM REVIEWED*: Not Applicable *COPY OF PRESCRIPTION DRUG MONITORING REPORT IN PATIENT LIZETT: Not Applicable Prescriptions/Med Rec: Sulfamethoxazole/Trimethoprim [Bactrim Ds Tablet] 1 each PO BID 3 Days #6 tablet Home Medications: Home Meds Colesevelam [Welchol] 625 mg PO DAILY@72905/07/18 [History] Furosemide 40 mg PO DAILY@72905/07/18 [History] Lisinopril 5 mg PO DAILY 05/07/18 [History] Metoprolol Succinate 25 mg PO BEDTIME 05/07/18 [History] Oxybutynin Chloride [Ditropan Xl] 10 mg PO DAILY 05/07/18 [History] Spironolactone [Aldactone] 12.5 mg PO DAILY@72905/07/18 [History] Amiodarone [Cordarone] 200 mg PO DAILY@72912/01/18 [History] Amantadine [Symmetrel] 100 mg PO BID@04/07/19 [History] Calcium Citrate 500 mg PO DAILY 04/07/19 [History] Levothyroxine 112 mcg PO ACBREAKFAST 04/07/19 [History] Multivit-Min/Iron/Folic/Lutein [Centrum Silver Women Tablet] 1 tab PO DAILY 08/21 [History] Potassium Chloride 10 meq PO BID@04/07/19 [History] hydrOXYzine HCl [hydrOXYzine] 25 mg PO BEDTIME 04/07/19 [History] levETIRAcetam [Keppra] 500 mg PO BID@04/07/19 [History] traZODone HCl [Trazodone HCl] 25 mg PO BEDTIME 04/07/19 [History] Sulfamethoxazole/Trimethoprim [Bactrim Ds Tablet] 1 each PO BID 3 Days #6 tablet 04/08/19 [Rx] cephALEXin [Keflex] 250 mg PO DAILY #0 04/08/19 [Rx] Patient Handouts: Sulfamethoxazole; Trimethoprim, SMX-TMP tablets Referrals: Jos Smith MD [Primary Care Provider] - 04/15/19 11:30 am (hospital follow -up and pre-op) - Discharge Summary/Plan Comment DC Time >30 min.: No - Patient Data Vitals - Most Recent: Last Vital Signs Temp 99.7 F 04/08/19 07:40 Pulse 73 04/08/19 07:40 Resp 12 04/08/19 07:40 BP 111/44 L 04/08/19 07:40 Pulse Ox 97 04/08/19 07:40 Weight - Most Recent: 65.771 kg I&O - Last 24 hours: Intake & Output 04/07/19 04/08/19 04/08/19 22:59 06:59 14:59 Intake Total 1342 330 Output Total 450 Balance 892 330 Lab Results - Last 24 hrs: Laboratory Results - last 24 hr 04/07/19 04/07/19 04/07/19 Range/Units 15:07 15:07 15:07 WBC 6.69 (4.0-11.0) K/uL RBC 4.14 L (4.30-5.90) M/uL Hgb 13.3 (12.0-16.0) g/dL Hct 37.8 (36.0-46.0) % MCV 91.3 (80.0-98.0) fL MCH 32.1 H (27.0-32.0) pg MCHC 35.2 (31.0-37.0) g/dL RDW Std Deviation 42.5 (28.0-62.0) fl RDW Coeff of Caroline 13 (11.0-15.0) % Plt Count 200 (150-400) K/uL MPV 9.20 (7.40-12.00) fL Neut % (Auto) 78.7 (48.0-80.0) % Lymph % (Auto) 9.7 L (16.0-40.0) % Placer % (Auto) 6.7 (0.0-15.0) % Eos % (Auto) 4.3 (0.0-7.0) % Baso % (Auto) 0.6 (0.0-1.5) % Neut # (Auto) 5.3 (1.4-5.7) K/uL Lymph # (Auto) 0.7 (0.6-2.4) K/uL Placer # (Auto) 0.5 (0.0-0.8) K/uL Eos # (Auto) 0.3 (0.0-0.7) K/uL Baso # (Auto) 0.0 (0.0-0.1) K/uL Nucleated RBC % 0.0 /100WBC Nucleated RBCs # 0 K/uL INR 1.04 Sodium 136 (136-145) mmol/L Potassium 3.6 (3.5-5.1) mmol/L Chloride 100 (98-107) mmol/L Carbon Dioxide 24.3 (21.0-32.0) mmol/L BUN 17 (7.0-18.0) mg/dL Creatinine 1.3 H (0.6-1.0) mg/dL Est Cr Clr Drug Dosing 39.16 mL/min Estimated GFR (MDRD) 40.5 ml/min Glucose 108 H (74-106) mg/dL Calcium 8.7 (8.5-10.1) mg/dL Total Bilirubin 0.8 (0.2-1.0) mg/dL AST 55 H (15-37) IU/L ALT 89 H (14-63) IU/L Alkaline Phosphatase 141 H (46-116) U/L Troponin I < 0.050 (0.000-0.056) ng/mL Total Protein 7.9 (6.4-8.2) g/dL Albumin 3.7 (3.4-5.0) g/dL Globulin 4.2 H (2.6-4.0) g/dL Albumin/Globulin Ratio 0.9 (0.9-1.6) Lipase 53 L (73-393) U/L Urine Color Urine Appearance Urine pH (5.0-8.0) Ur Specific Bonita (1.001-1.035) Urine Protein (NEGATIVE) mg/dL Urine Glucose (UA) (NEGATIVE) mg/dL Urine Ketones (NEGATIVE) mg/dL Urine Occult Blood (NEGATIVE) Urine Nitrite (NEGATIVE) Urine Bilirubin (NEGATIVE) Urine Urobilinogen (<2.0) EU/dL Ur Leukocyte Esterase (NEGATIVE) Urine RBC (0-2/HPF) Urine WBC (0-5/HPF) Ur Epithelial Cells (NONE-FEW) Urine Bacteria (NEGATIVE) Coarse Granular Casts (NEGATIVE) Urine Mucus (NONE-MOD) 04/08/19 04/08/19 04/08/19 Range/Units 01:50 05:46 05:46 WBC 5.05 (4.0-11.0) K/uL RBC 3.47 L (4.30-5.90) M/uL Hgb 11.0 L (12.0-16.0) g/dL Hct 31.6 L (36.0-46.0) % MCV 91.1 (80.0-98.0) fL MCH 31.7 (27.0-32.0) pg MCHC 34.8 (31.0-37.0) g/dL RDW Std Deviation 41.9 (28.0-62.0) fl RDW Coeff of Caroline 13 (11.0-15.0) % Plt Count 165 (150-400) K/uL MPV 9.00 (7.40-12.00) fL Neut % (Auto) 76.6 (48.0-80.0) % Lymph % (Auto) 11.1 L (16.0-40.0) % Placer % (Auto) 6.9 (0.0-15.0) % Eos % (Auto) 4.6 (0.0-7.0) % Baso % (Auto) 0.8 (0.0-1.5) % Neut # (Auto) 3.9 (1.4-5.7) K/uL Lymph # (Auto) 0.6 (0.6-2.4) K/uL Placer # (Auto) 0.4 (0.0-0.8) K/uL Eos # (Auto) 0.2 (0.0-0.7) K/uL Baso # (Auto) 0.0 (0.0-0.1) K/uL Nucleated RBC % 0.0 /100WBC Nucleated RBCs # 0 K/uL INR Sodium 137 (136-145) mmol/L Potassium 4.0 (3.5-5.1) mmol/L Chloride 104 (98-107) mmol/L Carbon Dioxide 21.1 (21.0-32.0) mmol/L BUN 18 (7.0-18.0) mg/dL Creatinine 1.0 (0.6-1.0) mg/dL Est Cr Clr Drug Dosing 50.90 mL/min Estimated GFR (MDRD) 54.8 ml/min Glucose 98 (74-106) mg/dL Calcium 7.9 L (8.5-10.1) mg/dL Total Bilirubin 0.7 (0.2-1.0) mg/dL AST 39 H (15-37) IU/L ALT 76 H (14-63) IU/L Alkaline Phosphatase 124 H (46-116) U/L Troponin I (0.000-0.056) ng/mL Total Protein 6.2 L (6.4-8.2) g/dL Albumin 2.8 L (3.4-5.0) g/dL Globulin 3.4 (2.6-4.0) g/dL Albumin/Globulin Ratio 0.8 L (0.9-1.6) Lipase (73-393) U/L Urine Color YELLOW Urine Appearance CLEAR Urine pH 6.0 (5.0-8.0) Ur Specific Bonita 1.025 (1.001-1.035) Urine Protein NEGATIVE (NEGATIVE) mg/dL Urine Glucose (UA) NEGATIVE (NEGATIVE) mg/dL Urine Ketones NEGATIVE (NEGATIVE) mg/dL Urine Occult Blood MODERATE H (NEGATIVE) Urine Nitrite NEGATIVE (NEGATIVE) Urine Bilirubin NEGATIVE (NEGATIVE) Urine Urobilinogen 0.2 (<2.0) EU/dL Ur Leukocyte Esterase SMALL H (NEGATIVE) Urine RBC 0-2 (0-2/HPF) Urine WBC 4-7 (0-5/HPF) Ur Epithelial Cells FEW (NONE-FEW) Urine Bacteria 1+ H (NEGATIVE) Coarse Granular Casts 0-1 (NEGATIVE) Urine Mucus LIGHT (NONE-MOD) Med Orders - Current: Current Medications Acetaminophen (Tylenol) 650 mg PO Q4H PRN PRN Reason: Pain (Mild 1-3)/fever Amantadine HCl (Symmetrel) 100 mg PO BID [facility] Last Admin: 04/08/19 09:58 Dose: 100 mg Amiodarone HCl (Cordarone) 200 mg PO DAILY [facility] Last Admin: 04/08/19 09:10 Dose: 200 mg Colesevelam HCl (Welchol) 625 mg PO DAILY [facility] Last Admin: 04/08/19 09:11 Dose: 625 mg Levetiracetam (Keppra) 500 mg PO BID [facility] Last Admin: 04/08/19 09:10 Dose: 500 mg Levothyroxine Sodium (Levothyroxine) 112 mcg PO ACBREAKFAST [facility] Last Admin: 04/08/19 06:32 Dose: 112 mcg Metoprolol Succinate (Toprol Xl) 25 mg PO DAILY [facility] Last Admin: 04/08/19 11:07 Dose: Not Given Ondansetron HCl (Zofran Odt) 4 mg PO Q4H PRN PRN Reason: nausea, able to take PO Ondansetron HCl (Zofran) 4 mg IVPUSH Q4H PRN PRN Reason: Nausea Oxybutynin Chloride (Oxybutynin) 5 mg PO BID [facility] Last Admin: 04/08/19 09:10 Dose: 5 mg Sodium Chloride (Saline Flush) 10 ml FLUSH ASDIRECTED PRN PRN Reason: Keep Vein Open Sodium Chloride (Saline Flush) 2.5 ml FLUSH ASDIRECTED PRN PRN Reason: Keep Vein Open Spironolactone (Aldactone) 12.5 mg PO DAILY [facility] Last Admin: 04/08/19 11:07 Dose: 12.5 mg Discontinued Medications Sodium Chloride (Normal Saline) 1,000 mls @ 999 mls/hr IV STAT ONE Stop: 04/07/19 17:33 Last Admin: 04/07/19 17:09 Dose: 999 mls/hr Sodium Chloride (Normal Saline) 1,000 mls @ 75 mls/hr IV STAT [facility] Last Admin: 04/07/19 20:30 Dose: 75 mls/hr Metoprolol Succinate (Toprol Xl) 25 mg PO DAILY [facility] <Luis Eduardo Palmer J - Last Filed: 04/09/19 18:44> Discharge Summary - Referral to Home Health Primary Care Physician: Jos Smith MD - Patient Summary/Data Consults: Consultations 04/07/19 18:03 Consult to Physical Therapy [PT Evaluation and Treatment] [CONS] Routine - Patient Data Vitals - Most Recent: Last Vital Signs Temp 36.9 C 04/08/19 11:00 Pulse 68 04/08/19 11:00 Resp 18 04/08/19 11:00 BP 117/53 L 04/08/19 11:00 Pulse Ox 96 04/08/19 11:00 MAUDE Results - Last 24 hrs: Microbiology 04/08/19 01:50 Urine Culture - Final Urine, Clean Catch MIXED YOVANNY >100,000 CFU/ML Med Orders - Current: Current Medications Discontinued Medications Acetaminophen (Tylenol) 650 mg PO Q4H PRN PRN Reason: Pain (Mild 1-3)/fever Amantadine HCl (Symmetrel) 100 mg PO BID [facility] Last Admin: 04/08/19 09:58 Dose: 100 mg Amiodarone HCl (Cordarone) 200 mg PO DAILY [facility] Last Admin: 04/08/19 09:10 Dose: 200 mg Colesevelam HCl (Welchol) 625 mg PO DAILY [facility] Last Admin: 04/08/19 09:11 Dose: 625 mg Sodium Chloride (Normal Saline) 1,000 mls @ 999 mls/hr IV STAT ONE Stop: 04/07/19 17:33 Last Admin: 04/07/19 17:09 Dose: 999 mls/hr Sodium Chloride (Normal Saline) 1,000 mls @ 75 mls/hr IV STAT [facility] Last Admin: 04/07/19 20:30 Dose: 75 mls/hr Levetiracetam (Keppra) 500 mg PO BID [facility] Last Admin: 04/08/19 09:10 Dose: 500 mg Levothyroxine Sodium (Levothyroxine) 112 mcg PO ACBREAKFAST [facility] Last Admin: 04/08/19 06:32 Dose: 112 mcg Metoprolol Succinate (Toprol Xl) 25 mg PO DAILY [facility] Metoprolol Succinate (Toprol Xl) 25 mg PO DAILY [facility] Last Admin: 04/08/19 11:07 Dose: Not Given Metoprolol Succinate (Toprol Xl) 25 mg PO BEDTIME [facility] Ondansetron HCl (Zofran Odt) 4 mg PO Q4H PRN PRN Reason: nausea, able to take PO Ondansetron HCl (Zofran) 4 mg IVPUSH Q4H PRN PRN Reason: Nausea Oxybutynin Chloride (Oxybutynin) 5 mg PO BID [facility] Last Admin: 04/08/19 09:10 Dose: 5 mg Sodium Chloride (Saline Flush) 10 ml FLUSH ASDIRECTED PRN PRN Reason: Keep Vein Open Sodium Chloride (Saline Flush) 2.5 ml FLUSH ASDIRECTED PRN PRN Reason: Keep Vein Open Spironolactone (Aldactone) 12.5 mg PO DAILY [facility] Last Admin: 04/08/19 11:07 Dose: 12.5 mg - Free Text/Narrative Note: I have seen and examined the patient with the resident. I have discussed findings and treatment plan with the resident. I agree with the assessment and plan outlined in the following note.
[2019-04-08 12:08] VITALS: BP 117/53; PULSE 68
== END 2019-04-08 12:30 | disposition home or self-care (01) ==
LOC: MW.ED 14:58 → MW.MS 17:16
PROVIDERS: ADMIT Internal Medicine; ATTEND Internal Medicine
DX: E86.0 Dehydration (principal); N17.9 Acute kidney failure, unspecified; I48.91 Unspecified atrial fibrillation; N39.0 Urinary tract infection, site not specified; I10 Essential (primary) hypertension; G40.909 Epilepsy, unspecified, not intractable, without status epilepticus; R74.0 Nonspecific elevation of levels of transaminase and lactic acid dehydrogenase [LDH]; C73 Malignant neoplasm of thyroid gland; Z88.8 Allergy status to other drugs, medicaments and biological substances; Z88.1 Allergy status to other antibiotic agents; Z79.01 Long term (current) use of anticoagulants; Z79.899 Other long term (current) drug therapy; Z86.79 Personal history of other diseases of the circulatory system
CPT/HCPCS: 36415; 70450; 70450-26; 71045; 71045-26; 80053; 81001; 83690; 84443; 84484; 85025; 85610; 87086; 93005; 96360; 96361; 97161-GP; 99284; 99285-25; A9270-GY; G0378; J7030

== ENCOUNTER 2023-09-11 23:00 | Emergency (ER) | payer MEDICARE, BC ==
[2023-09-11] MEDS: Lidocaine 4% 1 each Patch TOP STA (23:47)
[2023-09-11] MEDS: Acetaminophen 500 MG Tab PO ONE (23:48)
[2023-09-12] MEDS: Methocarbamol 750 MG Tab PO STA (01:15)
[2023-09-12 01:25] VITALS: BP 151/80; PULSE 70
== END 2023-09-12 01:24 | disposition home or self-care (01) ==
LOC: MW.ED 23:00
DX: S80.02XA Contusion of left knee, initial encounter (principal); W10.9XXA Fall (on) (from) unspecified stairs and steps, initial encounter; Y93.39 Activity, other involving climbing, rappelling and jumping off; Z79.01 Long term (current) use of anticoagulants; Z90.710 Acquired absence of both cervix and uterus; Z79.899 Other long term (current) drug therapy; Z88.8 Allergy status to other drugs, medicaments and biological substances; Z88.1 Allergy status to other antibiotic agents
CPT/HCPCS: 73562-26-LT; 73562-LT; 99283; A9270-GY

== ENCOUNTER 2023-09-30 18:00 | Emergency (ER) | payer MEDICARE, BC ==
[2023-09-30] MEDS: Sodium Chloride 0.9% 2.5 ML Syringe FLUSH PRN (20:13)
[2023-09-30] MEDS: Sodium Chloride 0.9% 1,000 ML IV STA (20:13)
[2023-09-30] MEDS: Sodium Chloride 0.9% 10 ML Syringe FLUSH PRN (20:13)
[2023-09-30 20:19] LABS: BILIRUBIN,URINE NEGATIVE (NEGATIVE); COLOR,URINE YELLOW; GLUCOSE,URINE NEGATIVE (NEGATIVE); KETONES,URINE NEGATIVE (NEGATIVE); LEUKOCYTE ESTERASE,URINE TRACE (NEGATIVE); NITRITE,URINE NEGATIVE (NEGATIVE); OCCULT BLOOD,URINE MODERATE (NEGATIVE); PROTEIN,URINE TRACE mg/dL (NEGATIVE); UROBILINOGEN,URINE 0.2 EU/dL (<2.0)
[2023-09-30 20:23] LABS: BASOPHILS ABSOLUTE AUTO 0.04 K/uL (0.00-0.20); BASOPHILS PERCENT AUTO 0.4 % (0.0-1.0); HEMATOCRIT 34.3 % (37.0-47.0); HEMOGLOBIN 11.8 g/dL (12.0-16.0); IMMATURE GRAN ABSOLUTE AUTO 0.05 K/uL (0.00-0.05); IMMATURE GRAN PERCENT AUTO 0.5 % (0.0-0.4); LYMPHOCYTES ABSOLUTE AUTO 1.94 K/uL (1.00-4.80); MEAN CORPUSCULAR HEMOGLOBIN 31.3 pg (28.0-32.0); MEAN CORPUSCULAR HGB CONC 34.4 g/dL (32.0-36.0); MEAN PLATELET VOLUME 8.4 fL (9.4-12.3); MONOCYTES ABSOLUTE AUTO 0.75 K/uL (0.00-0.80); MONOCYTES PERCENT AUTO 7.7 % (0.0-8.0); NEUTROPHILS ABSOLUTE AUTO 6.83 K/uL (1.80-7.70); NEUTROPHILS PERCENT AUTO 70.4 % (41.0-71.0); PLATELET COUNT,PLT 350 K/uL (150-400); RED BLOOD CELL COUNT 3.77 M/uL (4.10-5.30); WHITE BLOOD CELL COUNT,WBC 9.71 K/uL (3.9-11.3)
[2023-09-30 20:45] LABS: A/G RATIO 0.9 (0.9-1.6); ALBUMIN 3.4 g/dL (3.4-5.0); EST CRCL DRUG DOSING (CG) 47.27 mL/min; POTASSIUM,K 3.4 mmol/L (3.5-5.1)
[2023-09-30 21:00] LABS: APPEARANCE,URINE HAZY
[2023-09-30 21:01] LABS: BACTERIA,URINE FEW (NEGATIVE); EPITHELIAL CELLS,URINE FEW (NONE-FEW); RBC,URINE 20-30 (0-2/HPF)
[2023-09-30 21:02] LABS: CORONAVIRUS COVID-19 NAA NEGATIVE (NEGATIVE); INFLUENZA A NAA NEGATIVE (NEGATIVE); INFLUENZA B NAA NEGATIVE (NEGATIVE); RESPIRATORY SYNCYTIAL VIR NAA NEGATIVE (NEGATIVE)
[2023-09-30] MEDS: Potassium Chloride 20 MEQ Tab.ER PO ONE (22:03)
[2023-09-30 22:19] VITALS: BP 160/79; PULSE 73
== END 2023-09-30 22:19 | disposition home or self-care (01) ==
LOC: MW.ED 18:00
DX: M25.551 Pain in right hip (principal); M25.552 Pain in left hip; I48.91 Unspecified atrial fibrillation; Z88.8 Allergy status to other drugs, medicaments and biological substances; Z88.1 Allergy status to other antibiotic agents; Z79.899 Other long term (current) drug therapy; Z79.01 Long term (current) use of anticoagulants; Z75.8 Other problems related to medical facilities and other health care
CPT/HCPCS: 0241U; 36415; 72170; 80053; 81001; 82550; 85025; 96360; 99283; A9270; J3490; J7030; 99282

== ENCOUNTER 2023-10-02 16:50 | Emergency (ER) | payer MEDICARE, BC ==
[2023-10-02] MEDS: Sodium Chloride 0.9% 2.5 ML Syringe FLUSH PRN (17:28)
[2023-10-02] MEDS: Sodium Chloride 0.9% 10 ML Syringe FLUSH PRN (17:28)
[2023-10-02 17:33] LABS: BASOPHILS ABSOLUTE AUTO 0.05 K/uL (0.00-0.20); BASOPHILS PERCENT AUTO 0.5 % (0.0-1.0); EOSINOPHILS ABSOLUTE AUTO 0.17 K/uL (0.00-0.45); EOSINOPHILS PERCENT AUTO 1.8 % (0.0-6.0); HEMATOCRIT 33.1 % (37.0-47.0); HEMOGLOBIN 11.4 g/dL (12.0-16.0); IMMATURE GRAN ABSOLUTE AUTO 0.05 K/uL (0.00-0.05); IMMATURE GRAN PERCENT AUTO 0.5 % (0.0-0.4); LYMPHOCYTES ABSOLUTE AUTO 2.32 K/uL (1.00-4.80); LYMPHOCYTES PERCENT AUTO 24.4 % (24.0-44.0); MEAN CORPUSCULAR HEMOGLOBIN 31.6 pg (28.0-32.0); MEAN CORPUSCULAR HGB CONC 34.4 g/dL (32.0-36.0); MEAN CORPUSCULAR VOLUME 91.7 fL (83.0-99.0); MEAN PLATELET VOLUME 8.5 fL (9.4-12.3); MONOCYTES ABSOLUTE AUTO 0.69 K/uL (0.00-0.80); MONOCYTES PERCENT AUTO 7.3 % (0.0-8.0); NEUTROPHILS ABSOLUTE AUTO 6.23 K/uL (1.80-7.70); NEUTROPHILS PERCENT AUTO 65.5 % (41.0-71.0); PLATELET COUNT,PLT 337 K/uL (150-400); RED BLOOD CELL COUNT 3.61 M/uL (4.10-5.30); WHITE BLOOD CELL COUNT,WBC 9.51 K/uL (3.9-11.3)
[2023-10-02 17:57] LABS: A/G RATIO 0.9 (0.9-1.6); ALBUMIN 3.5 g/dL (3.4-5.0); BILIRUBIN TOTAL 1.1 mg/dL (0.2-1.0); CALCIUM 8.4 mg/dL (8.5-10.1); CARBON DIOXIDE,CO2 23.8 mmol/L (21.0-32.0); CREATININE 1.2 mg/dL (0.6-1.0); EST CRCL DRUG DOSING (CG) 39.39 mL/min; POTASSIUM,K 3.6 mmol/L (3.5-5.1); PROTEIN TOTAL,TP 7.3 g/dL (6.4-8.2)
[2023-10-02 18:02] LABS: INR > 8.00 (0.86-1.11)
[2023-10-02] MEDS: Sodium Chloride 0.9% 500 ML IV SCH (18:03)
[2023-10-02 19:29] VITALS: BP 130/58; PULSE 65
== END 2023-10-02 19:29 | disposition home or self-care (01) ==
LOC: MW.ED 16:50
DX: R31.9 Hematuria, unspecified (principal); I11.0 Hypertensive heart disease with heart failure; I50.9 Heart failure, unspecified; Z79.01 Long term (current) use of anticoagulants; Z75.8 Other problems related to medical facilities and other health care; Z88.8 Allergy status to other drugs, medicaments and biological substances; Z88.1 Allergy status to other antibiotic agents; Z79.899 Other long term (current) drug therapy; Z79.890 Hormone replacement therapy; Z90.710 Acquired absence of both cervix and uterus; N13.30 Unspecified hydronephrosis; N13.4 Hydroureter; Z85.850 Personal history of malignant neoplasm of thyroid
CPT/HCPCS: 36415; 74176; 80053; 81001; 83690; 85025; 85610; 86850; 86900; 86901; 87086; 93005; 96360; 99283; J3490; J7040; 93010; 99282

== ENCOUNTER 2023-10-17 14:42 | Emergency (ER) | payer MEDICARE, BC ==
[2023-10-17 15:55] VITALS: BP 113/54; PULSE 70
[2023-10-17 16:26] LABS: INR 1.04 (0.86-1.11)
== END 2023-10-17 17:00 | disposition home or self-care (01) ==
LOC: MW.ED 14:42
DX: R79.1 Abnormal coagulation profile (principal); I48.91 Unspecified atrial fibrillation; I11.0 Hypertensive heart disease with heart failure; I50.9 Heart failure, unspecified; Z79.899 Other long term (current) drug therapy; Z79.01 Long term (current) use of anticoagulants; Z88.8 Allergy status to other drugs, medicaments and biological substances; Z88.1 Allergy status to other antibiotic agents; Z75.8 Other problems related to medical facilities and other health care
CPT/HCPCS: 36415; 85610; 99283